=== PATIENT | female | born 1955 | race Caucasian/White ===

== ENCOUNTER → 2016-09-17 | Outpatient (CLI) | payer OTHER ==
[2015-11-25 16:57] VITALS: BP 132/67
[~2016-09-17] MED LIST: ASPI325T4 PO; MULT-246 PO; SIMV40TA PO
--- NOTE | 2016-09-17 13:13 | KCIC ---
Examination: CT chest without contrast. HISTORY History of followup lung nodules, abdominal CT COMPARISON 09/16/[address] images of the chest were performed without contrast. Coronal sagittal reformats were performed. Exposure: One or more of the following dose reduction technique were utilized for this examination: 1. Automated exposure control. 2.Adjustment of MA and /or KV according to patient size. 3. Use of iterative reconstruction technique. FINDINGS The examination is limited by lack of IV contrast. The visualized thyroid gland grossly appears unremarkable. The central airways are patent. The ascending aorta measures 2.8 centimeters in transverse dimension. No evidence a pericardial effusion. No radiologically significant mediastinal lymphadenopathy identified. Emphysematous changes identified in the bilateral lungs. The previously visualized ground-glass pulmonary nodule identified in the right lower lobe of lung is not identified on today's examination. No evidence of pleural effusion or pneumothorax. The visualized non contrasted liver, spleen, adrenals grossly appears unremarkable. Small superior endplate Schmorl's node identified at L2 vertebral body, is new compared to prior exam. IMPRESSION 1. The previously visualized vague ground-glass 4 millimeter nodule is not clearly identified on today's examination. 2. Moderate emphysematous changes identified in the bilateral lungs. 3. Small superior endplate Schmorl's node identified at L2 vertebral body, is new compared to prior exam. Electronically signed by: Herbert Cano (Sep 17, 2016 13:12:49)
== END | disposition home or self-care (01) ==
LOC: KCIC CT 11:12
PROVIDERS: ATTEND Family Medicine
DX: R93.8 Abnormal findings on diagnostic imaging of other specified body structures (principal); F17.210 Nicotine dependence, cigarettes, uncomplicated
CPT/HCPCS: 71250

== ENCOUNTER → 2017-11-30 | Outpatient (CLI) | payer OTHER ==
[~2017-11-30] MED LIST changes: -ASPI325T4 PO; -MULT-246 PO; +REGADENOSON 0.4 MG/5 ML DISP.SYRIN. IV; -SIMV40TA PO
[2017-11-30] MEDS: REGADENOSON 0.4 MG/5 ML DISP.SYRIN. IV (11:16)
== END | disposition home or self-care (01) ==
LOC: NM 08:47
DX: I73.9 Peripheral vascular disease, unspecified (principal); J44.9 Chronic obstructive pulmonary disease, unspecified; I10 Essential (primary) hypertension; E78.5 Hyperlipidemia, unspecified; I36.1 Nonrheumatic tricuspid (valve) insufficiency; Z87.891 Personal history of nicotine dependence
CPT/HCPCS: 78452; 93017; 93306; 93925; 96374; 96375; 96376; A9500; J2785

== ENCOUNTER → 2018-02-09 | Outpatient (CLI) | payer OTHER | END | disposition home or self-care (01) | LOC: KCIC 14:21 | DX: M25.531 Pain in right wrist (principal) | CPT/HCPCS: 73110 ==

== ENCOUNTER → 2018-06-19 | Outpatient (CLI) | payer OTHER ==
[2018-06-19] VITALS (10 sets, daily range): BP systolic 102–138; BP diastolic 50–68
[~2018-06-19] VITALS: Ht 171.4 cm; Wt 45.8 kg
[~2018-06-19] MED LIST changes: +ALPR0.5T6 PO; +ASPI-630 PO; +ASPI325T8 PO; +CONTRAST GIVEN. MC PRN; +HEPARIN for IV BOLUS 10,000 UNIT/10 ML VIAL. IART ONE; +HEPARIN for IV BOLUS 10,000 UNIT/10 ML VIAL. ONE; +IODIXANOL 320 MG/ML 100 ML VIAL. IART ONE; +IODIXANOL 320 MG/ML 100 ML VIAL. ONE; +IV 1/2 NORMAL SALINE 1,000 ML IV SCH; +IV NORMAL SALINE 1000ML BAG 1,000 ML IV SCH; +LIDOCAINE 1% Multi-Dose 50 ML VIAL. ONE; +LIDOCAINE 1% PF 2 ML VIAL. INJ ONE; +LIDOCAINE 1% PF 2 ML VIAL. ONE; +LIPA1CAP6 PO; +MELA3TAB2 PO; +MIDAZOLAM HCL/PF 2 MG/2 ML VIAL. IV ONE; +MIDAZOLAM HCL/PF 2 MG/2 ML VIAL. ONE; +MULT-246 PO; +NITROGLYCERIN 200 MCG/2 ML SYRINGE FOR CATH/VASC LAB. IART ONE; +NITROGLYCERIN 200 MCG/2 ML SYRINGE FOR CATH/VASC LAB. ONE; +NITROGLYCERIN SUBLINGUAL 0.4 MG BOTTLE OF 25. SL PRN; +ONDANSETRON PF 4 MG/2 ML VIAL. ONE; +PROAIR HFA8.5 GM INH; -REGADENOSON 0.4 MG/5 ML DISP.SYRIN. IV; +SERT100T PO; +SIMV40TA PO; +TIOT18CA IH; +VERAPAMIL 5 MG/2 ML VIAL. IART ONE; +VERAPAMIL 5 MG/2 ML VIAL. ONE; +VORA2.082 PO; +fentaNYL PF VIAL 100 MCG/2 ML VIAL IV ONE; +fentaNYL PF VIAL 100 MCG/2 ML VIAL ONE
[2018-06-19 07:25] LABS: CALCIUM 9.3 mg/dL (8.5-10.1); CREATININE 0.9 mg/dL (0.6-1.0); GFR 63.9; HEMATOCRIT 39.6 % (36.0-47.0); POTASSIUM 3.9 mmol/L (3.5-5.1); RED BLOOD COUNT 4.12 x10^6/uL (3.50-5.40); RED CELL DISTRIBUTION WIDTH 14.9 % (11.5-14.5); WHITE BLOOD COUNT 8.4 x10^3/uL (4.0-11.0)
[2018-06-19 07:40] LABS: PROTHROMBIN TIME PATIENT 12.1 SEC (11.7-14.0)
--- NOTE | 2018-06-19 10:18 | PDOC ---
MODERATE SEDATION ASSESSMENT RISKS/ALTERNATIVES Risks/Alternatives Risks and alternatives of this type of sedation and procedure discussed with: RISK/ALTERNATIVES: Patient H & P ON CHART H & P H & P on chart and reviewed for co-morbid conditions and appropriate labs. H&P ON CHART: Yes STATUS PREG STATUS ASSESSED: N/A MEDS/ALLERGIES REVIEWED Meds/Allergies Reviewed Medications and Allergies including time and route of recently administered narcotics and sedatives. MEDS/ALLERGIES REVIEWED: Yes ASA RATING ASA RATING: II AIRWAY ASSESSMENT Airway Assessment Airway patency, oral function limitations, presence of caps, crowns, dentures, partials, and ability to extend neck assessed. AIRWAY ASSESSMENT: Yes MALLAMPATI SCORE MALLAMPATI SCORE: II PRE-SEDATION ASSESSMENT PRE-SEDATION ASSESSMENT: Yes TAVO PADGETT MD Jun 19, 2018 10:18
--- NOTE | 2018-06-19 11:06 | CARD ---
MR#: [id number] Date of Study: 06/19/2018 Ordering Physician: TAVO LOJA Referring Physician: TAVO LOJA Tech: RT Sara (R) APPROVED REPORT Technologist: RT Sara (R) Nurse: Rosalia Ponce R.N. Procedure(s) performed: Left heart catheterization, selective coronary angiography and left ventricul ography via right transradial approach INDICATION The indication(s) include : Refractory dyspnea on exertion concerning for unstable angina. PROCEDURE NARRATIVE After explaining the risks, benefits and alternative options, informed consent was obtained from quita ent. Patient was brought to the cardiac Building Mover and right wrist was prepped and draped in the usual fashion after confirming a positive modified Hilario's test. Arterial access was obtained in the righ t radial artery and a 6 Lithuanian sheath was inserted. 6 Lithuanian Carl catheter was used to perform alexander ective angiography of the left and right coronary arteries. 6 Lithuanian pigtail catheter was used to pe rform left ventriculography. Subsequently, the same catheter was used to perform aortogram with runof f, reported separately. Patient tolerated the procedure well. Hemostasis was achieved using TR band. There were no immediate complications. The following findings were noted. FINDINGS 1. Hemodynamics: Left ventricular end-diastolic pressure of 16 mmHg. No pullback gradient across th e aortic valve. 2. Left ventriculography: Normal left ventricle systolic function with ejection fraction estimated at 60%. No significant mitral regurgitation seen. 3. Coronary angiography: a. The left main coronary artery arose from the left sinus of Valsalva, gave rise to the left anteri or descending and left circumflex arteries and did not show any significant stenosis. b. The left anterior descending artery did not show any significant stenosis. c. The left circumflex artery did not show any significant stenosis. d. The right coronary artery was a large and dominant vessel arising from the right sinus of Valsalv a that did not show any significant stenosis. Conclusion 1. No significant coronary disease 2. Normal left ventricle systolic function with ejection fraction estimated at 60%. Recommendations Cardiac Risk Reduction Program Signed by : Tavo Loja, Electronically Approved : 06/19/2018 11:05:01
--- NOTE | 2018-06-19 11:14 | CARD ---
MR#: [id number] Date of Study: 06/19/2018 Ordering Physician: TAVO LOJA, Referring Physician: TAVO LOJA Tech: RT Sara (R) APPROVED REPORT Patient StatusOUT-PATIENT Vamper: RT Sara (R) Procedure(s) performed: Aortogram with bilateral lower extremity runoff INDICATION FOR PROCEDURE The indication(s) include : Peripheral artery disease with claudication. PROCEDURE NARRATIVE After explaining the risks, benefits and alternative options, informed consent was obtained from quita ent. Patient was brought to the cardiac Big Data Lead and her right wrist was prepped and draped in the us ual fashion after confirming a positive modified Hilario's test. Arterial access was obtained in the merged with [facility] radial artery and a 6 [place] sheath was inserted. Selective coronary angiography and left ventric ulography were performed, reported separately. A 6 [place] pigtail catheter was then placed in the dis gale descending aorta and aortogram with bilateral lower extremity runoff was performed. Since patient was found to have angiographically suspicious lesion in the left common iliac artery stent, a 4 Fren ch Navicross catheter was used to perform pressure gradient across this lesion. Patient tolerated the procedure well. Hemostasis was achieved using TR band. There were no immediate complications. The fo llowing findings were noted. FINDINGS 1. No significant stenosis involving the distal descending aorta 2. Kissing stents seen in bilateral common iliac arteries. The left common iliac artery stent showed 30% in-stent restenosis in the proximal segment with pressure gradient of 9 mmHg across the lesion. The right common iliac artery stent did not show any significant stenosis. 3. No significant stenosis involving bilateral external iliac arteries. 4. No significant stenosis involving bilateral common femoral arteries. 5. No significant stenosis involving bilateral superficial and deep femoral/profunda arteries. 6. No significant stenosis involving bilateral popliteal arteries. 7. There is three-vessel runoff below the knee bilaterally. Conclusion 30% in-stent restenosis involving the left common iliac artery stent without any significant pullback gradient across the lesion. The right common iliac artery stent was widely patent. No significant pe ripheral artery stenosis noted. Recommendations Vascular risk factor modification including smoking cessation and regular exercise regimen Signed by : Tavo Loja, Electronically Approved : 06/19/2018 11:13:40
== END | disposition home or self-care (01) ==
LOC: CCL 06:28
PROVIDERS: ATTEND Internal Medicine Cardiovascular Disease
DX: I70.212 Atherosclerosis of native arteries of extremities with intermittent claudication, left leg (principal); I20.0 Unstable angina; Z79.899 Other long term (current) drug therapy; E78.5 Hyperlipidemia, unspecified; Z90.49 Acquired absence of other specified parts of digestive tract; Z98.890 Other specified postprocedural states; Z82.49 Family history of ischemic heart disease and other diseases of the circulatory system; F17.200 Nicotine dependence, unspecified, uncomplicated; Z88.8 Allergy status to other drugs, medicaments and biological substances
CPT/HCPCS: 36415; 75716; 80048; 85027; 85610; 93458; 99152; 99153; C1769; C1892; J1644; J2250; J3010; J3490; J7030; Q9967; 75630

== ENCOUNTER 2018-11-20 10:21 | Emergency (ER) | payer OTHER ==
[~2018-11-20] VITALS: Ht 170.2 cm; Wt 45.8 kg
[~2018-11-20 10:21] MED LIST changes: +ALBU2.5V8 INH; -CONTRAST GIVEN. MC PRN; -HEPARIN for IV BOLUS 10,000 UNIT/10 ML VIAL. IART ONE; -HEPARIN for IV BOLUS 10,000 UNIT/10 ML VIAL. ONE; -IODIXANOL 320 MG/ML 100 ML VIAL. IART ONE; -IODIXANOL 320 MG/ML 100 ML VIAL. ONE; -IV 1/2 NORMAL SALINE 1,000 ML IV SCH; -IV NORMAL SALINE 1000ML BAG 1,000 ML IV SCH; -LIDOCAINE 1% Multi-Dose 50 ML VIAL. ONE; -LIDOCAINE 1% PF 2 ML VIAL. INJ ONE; -LIDOCAINE 1% PF 2 ML VIAL. ONE; -MIDAZOLAM HCL/PF 2 MG/2 ML VIAL. IV ONE; -MIDAZOLAM HCL/PF 2 MG/2 ML VIAL. ONE; -NITROGLYCERIN 200 MCG/2 ML SYRINGE FOR CATH/VASC LAB. IART ONE; -NITROGLYCERIN 200 MCG/2 ML SYRINGE FOR CATH/VASC LAB. ONE; -NITROGLYCERIN SUBLINGUAL 0.4 MG BOTTLE OF 25. SL PRN; -ONDANSETRON PF 4 MG/2 ML VIAL. ONE; -PROAIR HFA8.5 GM INH; -VERAPAMIL 5 MG/2 ML VIAL. IART ONE; -VERAPAMIL 5 MG/2 ML VIAL. ONE; -fentaNYL PF VIAL 100 MCG/2 ML VIAL IV ONE; -fentaNYL PF VIAL 100 MCG/2 ML VIAL ONE
[2018-11-20] MEDS ORDERED: IV NORMAL SALINE 1000ML BAG 1,000 ML IV SCH (10:54)
[2018-11-20] MEDS ORDERED: diphenhydrAMINE 50 MG/ML VIAL IV ONE (11:00)
[2018-11-20] MEDS ORDERED: IPRATRPIUM/ALBUTEROL 0.5/2.5MG 3 ML NEBU. NEB ONE (11:00)
[2018-11-20] MEDS ORDERED: methylPREDNISolone SOD SUCC PF 125 MG/2 ML VIAL. IV ONE (11:00)
[2018-11-20] MEDS ORDERED: FAMOTIDINE 20 MG/2 ML VIAL IVP ONE (11:00)
--- NOTE | 2018-11-20 11:08 | PHYS DOC ---
Past Medical History Past Medical History: COPD, Heart Disease Additional Past Medical Histor: PANCREATIC PROBLEM ,PNEUMOTHOAX Past Surgical History: Appendectomy Additional Past Surgical Histo: BILATERAL LEG STENTS R/T PVD. Alcohol Use: None Drug Use: None Adult General Chief Complaint Chief Complaint: FACE PROBLEM [facility] HPI Patient is a 63 year old 63 who presents with complaining of rash and facial swelling. Patient complaining of sudden onset of generalized pruritic hives since last night and lips and facial edema with shortness of breath since this morning. Patient denies chest pain, dysphagia, history of allergic reaction, starting new medication or food or detergent. Patient has history of COPD without home oxygen and currently is a smoker. Review of Systems Review of Systems Constitutional: Denies fever or chills [] Eyes: Denies change in visual acuity, redness, or eye pain [] HENT: Denies nasal congestion or sore throat [] Respiratory: Denies cough, reports shortness of breath Cardiovascular: No additional information not addressed in HPI [] GI: Denies abdominal pain, nausea, vomiting, bloody stools or diarrhea [] : Denies dysuria or hematuria [] Musculoskeletal: Denies back pain or joint pain [] Integument: Reports rash Neurologic: Denies headache, focal weakness or sensory changes [] Endocrine: Denies polyuria or polydipsia [] All other systems were reviewed and found to be within normal limits, except as documented in this note. Current Medications Current Medications Current Medications Medications (Trade) Dose Ordered Sig/Elizabeth Start Time Stop Time Status Last Admin Dose Admin Albuterol/ Ipratropium (Duoneb) 3 ml 1X ONCE 11/20/18 11:00 11/20/18 11:01 DC 11/20/18 11:19 3 ML Diphenhydramine HCl (Benadryl) 50 mg 1X ONCE 11/20/18 11:00 11/20/18 11:01 DC 11/20/18 11:56 50 MG Famotidine (Pepcid Vial) 20 mg 1X ONCE 11/20/18 11:00 11/20/18 11:01 DC 11/20/18 11:55 20 MG Methylprednisolone Sodium Succinate (SOLU-Medrol 125MG VIAL) 125 mg 1X ONCE 11/20/18 11:00 11/20/18 11:01 DC 11/20/18 11:56 125 MG Sodium Chloride 1,000 ml @ 1,000 mls/hr Q1H 11/20/18 10:54 11/20/18 11:53 DC 11/20/18 11:55 1,000 MLS/HR Allergies Allergies Allergies Coded Allergies Type Severity Reaction Last Updated Verified metronidazole Allergy Unknown 06/21/14 Yes Physical Exam Physical Exam Constitutional: Well nourished, moderate distress, non-toxic appearance. [] HENT: Normocephalic, atraumatic, upper and lower lips moderate edema without vinita p[place] or uvular edema, bilateral external ears normal, oropharynx moist, no oral exudates, nose normal. [] Eyes: PERRLA, EOMI, conjunctiva normal, no discharge. [] Neck: Normal range of motion, no tenderness, supple, no stridor. [] Cardiovascular:Heart rate regular rhythm, no murmur [] Lungs & Thorax: Bilateral breath sounds clear to auscultation, no respiratory distress or wheezing [] Abdomen: Bowel sounds normal, soft, no tenderness, no masses, no pulsatile masses. [] Skin: Warm, dry, generalized patchy rash on neck, chest, back, gluteal and genital area, upper and lower extremities Neurologic: Alert and oriented X 3, normal motor function, normal sensory function, no focal deficits noted. [] Psychologic: Affect anxious, judgement normal, mood normal. [] Current Patient Data Vital Signs Vital Signs Date Time Temp Pulse Resp B/P (MAP) Pulse Ox O2 Delivery O2 Flow Rate FiO2 11/20/18 13:15 90 16 100/52 (68) 100 Room Air 11/20/18 11:15 99.0 99.0 Lab Values Laboratory Tests Test 11/20/18 11:45 White Blood Count 17.2 x10^3/uL (4.0-11.0) H Red Blood Count 4.20 x10^6/uL (3.50-5.40) Hemoglobin 14.3 g/dL (12.0-15.5) Hematocrit 42.4 % (36.0-47.0) Mean Corpuscular Volume 101 fL (79-100) H Mean Corpuscular Hemoglobin 34 pg (25-35) Mean Corpuscular Hemoglobin Concent 34 g/dL (31-37) Red Cell Distribution Width 16.5 % (11.5-14.5) H Platelet Count 226 x10^3/uL (140-400) Neutrophils (%) (Auto) 94 % (31-73) H Lymphocytes (%) (Auto) 4 % (24-48) L Monocytes (%) (Auto) 2 % (0-9) Eosinophils (%) (Auto) 0 % (0-3) Basophils (%) (Auto) 1 % (0-3) Neutrophils # (Auto) 16.1 x10^3uL (1.8-7.7) H Lymphocytes # (Auto) 0.7 x10^3/uL (1.0-4.8) L Monocytes # (Auto) 0.3 x10^3/uL (0.0-1.1) Eosinophils # (Auto) 0.0 x10^3/uL (0.0-0.7) Basophils # (Auto) 0.1 x10^3/uL (0.0-0.2) Segmented Neutrophils % 92 % (35-66) H Band Neutrophils % 5 % (0-9) Lymphocytes % 2 % (24-48) L Monocytes % 1 % (0-10) Platelet Estimate Adequate (ADEQUATE) Sodium Level 136 mmol/L (136-145) Potassium Level 3.7 mmol/L (3.5-5.1) Chloride Level 101 mmol/L (98-107) Carbon Dioxide Level 24 mmol/L (21-32) Anion Gap 11 (6-14) Blood Urea Nitrogen 19 mg/dL (7-20) Creatinine 1.0 mg/dL (0.6-1.0) Estimated GFR (Cockcroft-Gault) 56.4 BUN/Creatinine Ratio 19 (6-20) Glucose Level 148 mg/dL (70-99) H Calcium Level 9.1 mg/dL (8.5-10.1) Total Bilirubin 1.2 mg/dL (0.2-1.0) H Aspartate Amino Transferase (AST) 22 U/L (15-37) Alanine Aminotransferase (ALT) 16 U/L (14-59) Alkaline Phosphatase 119 U/L (46-116) H Total Protein 7.3 g/dL (6.4-8.2) Albumin 3.8 g/dL (3.4-5.0) Albumin/Globulin Ratio 1.1 (1.0-1.7) Laboratory Tests 11/20/18 11:45 Laboratory Tests 11/20/18 11:45 EKG EKG [] Radiology/Procedures Radiology/Procedures [] Course & Med Decision Making Course & Med Decision Making Pertinent Labs reviewed. (See chart for details) Evaluation of patient in ER showed 63-year-old female patient generalized rash and facial swelling with normal O2 sat labs showed mild leukocytosis without electrolyte problem. Patient treatment with IV fluid, Benadryl, Pepcid and Solu- Medrol and DuoNeb with improvement of her condition. Plan discharge patient home with diagnosis of allergic reaction. Dragon Disclaimer Dragon Disclaimer This electronic medical record was generated, in whole or in part, using a voice recognition dictation system. Departure Departure Impression: Primary Impression: Allergic reaction Additional Impressions: Tobacco abuse Tobacco abuse counseling Disposition: HOME, SELF-CARE (at 14 oh to) Condition: IMPROVED Referrals: BETHANIE MATHEW MD (PCP) Patient Instructions: Drug Allergy, Ueds-sj-Jjkz, Food Allergy, Smoking Cessation, Tips For Success Additional Instructions: Drink plenty of liquids Follow-up with your primary care physician in 3-5 days Return to ER if not getting better Scripts Famotidine (PEPCID) 20 Mg Tablet 20 MG PO BID for rash, #20 TAB Prov: RANDY SHARPE MD 11/20/18 Methylprednisolone (MEDROL) 4 Mg Tab.ds.pk 1 PKG PO UD for inflammation, #1 PKG Prov: RANDY SHARPE MD 11/20/18 Hydroxyzine Hcl (HYDROXYZINE HCL) 25 Mg Tablet 1 TAB PO TID PRN for itching, #30 TAB Prov: RANDY SHARPE MD 11/20/18 Problem Qualifiers Primary Impression: Allergic reaction Encounter type: initial encounter Qualified Codes: T78.40XA - Allergy, unspecified, initial encounter RANDY SHARPE MD Nov 20, 2018 11:07
[2018-11-20 11:54] LABS: BASO # 0.1 x10^3/uL (0.0-0.2); BASO % 1 % (0-3); EOS % 0 % (0-3); HEMATOCRIT 42.4 % (36.0-47.0); HEMOGLOBIN 14.3 g/dL (12.0-15.5); LYMPH # 0.7 x10^3/uL (1.0-4.8); LYMPH % 4 % (24-48); MEAN CORPUSCULAR HEMOGLOBIN 34 pg (25-35); MEAN CORPUSCULAR HGB CONC 34 g/dL (31-37); MEAN CORPUSCULAR VOLUME 101 fL (79-100); MONO # 0.3 x10^3/uL (0.0-1.1); MONO % 2 % (0-9); NEUT # 16.1 x10^3uL (1.8-7.7); NEUT % 94 % (31-73); PLATELET COUNT 226 x10^3/uL (140-400); RED CELL DISTRIBUTION WIDTH 16.5 % (11.5-14.5); WHITE BLOOD COUNT 17.2 x10^3/uL (4.0-11.0)
[2018-11-20 12:16] LABS: CALCIUM 9.1 mg/dL (8.5-10.1)
[2018-11-20 12:17] LABS: GFR 56.4; POTASSIUM 3.7 mmol/L (3.5-5.1)
[2018-11-20 12:22] LABS: ALBUMIN 3.8 g/dL (3.4-5.0); ALBUMIN/GLOBULIN RATIO 1.1 (1.0-1.7); TOTAL BILIRUBIN 1.2 mg/dL (0.2-1.0); TOTAL PROTEIN 7.3 g/dL (6.4-8.2)
[2018-11-20 13:05] LABS: % BANDS 5 % (0-9); % LYMPHS 2 % (24-48); % MONOS 1 % (0-10); % SEGS 92 % (35-66); PLT ESTIMATE ADEQUATE (ADEQUATE)
[2018-11-20] MEDS ORDERED: METH4TAB2 PO (13:08)
[2018-11-20] MEDS ORDERED: FAMO-63 PO (13:08)
[2018-11-20] MEDS ORDERED: HYDR25TA PO (13:08)
[2018-11-20 13:15] VITALS: BP 100/52
== END 2018-11-20 14:10 | disposition home or self-care (01) ==
LOC: ER 10:21
DX: T78.40XA Allergy, unspecified, initial encounter (principal); Z72.0 Tobacco use; Z71.6 Tobacco abuse counseling; J44.9 Chronic obstructive pulmonary disease, unspecified; Z88.8 Allergy status to other drugs, medicaments and biological substances
CPT/HCPCS: 36415; 80053; 85007; 85025; 94640; 96374; 96375; 99284; J1200; J2930; J3490; J7030; J7620

== ENCOUNTER → 2019-01-18 | Outpatient (CLI) | payer OTHER ==
[~2019-01-18] MED LIST changes: +FAMO-63 PO; +HYDR25TA PO; +METH4TAB2 PO
--- NOTE | 2019-01-18 11:01 | CARD ---
MR#: [id number] Date of Study: 01/18/2019 Ordering Physician: TAVO PADGETT, Referring Physician: TAVO PADGETT Tech: Matilde Arita RDCS APPROVED REPORT EXAM: Two-dimensional and M-mode echocardiogram with Doppler and color Doppler. Other Information Quality : Good INDICATION Peripheral Vascular Disease 2D DIMENSIONS RVDd2.0 (2.9-3.5cm)Left Atrium(2D)2.7 (1.6-4.0cm) IVSd0.7 (0.7-1.1cm)Aortic Root(2D)2.3 (2.0-3.7cm) LVDd4.3 (3.9-5.9cm)LVOT Diameter1.9 (1.8-2.4cm) PWd0.6 (0.7-1.1cm)LVDs2.8 (2.5-4.0cm) FS (%) 34.6 %SV52.9 ml LVEF(%)64.0 (>50%) Aortic Valve AoV Peak Andrea.112.4cm/sAoV VTI23.7cm AO Peak GR.5.1mmHgLVOT Peak Andrea.92.4cm/s LVOT VTI 20.77cmAO Mean GR.3mmHg IVANIA (VMAX)2.62gd0RVO (VTI)2.56cm2 Mitral Valve MV E Uvkklhjm87.4cm/sMV DECEL ESLQ507lq MV A Btfgyekf84.1cm/sMV LBO11ae E/A Ratio1.5MVA (PHT)4.95cm2 TDI E/Lateral E'26.4E/Medial E'10.4 Tricuspid Valve TR P. Krmovohu043qp/sRAP QXHLIAJO2rrBj TR Peak Gr.92jkEdMGJU36eiAb Pulmonary Vein S1 Puyoysvq92.8cm/sD2 Hblmytgu34.7cm/s LEFT VENTRICLE The left ventricle is normal size. There is normal left ventricular wall thickness. The left ventricu lar systolic function is normal. The Ejection Fraction is 60-65%. There is normal LV segmental wall m otion. RIGHT VENTRICLE The right ventricle is normal size. The right ventricular systolic function is normal. ATRIA The left atrium size is normal. The right atrium size is normal. The interatrial septum is intact wit h no evidence for an atrial septal defect or patent foramen ovale as noted on 2-D or Doppler imaging. AORTIC VALVE The aortic valve is normal in structure and function. Doppler and Color Flow revealed no significant aortic regurgitation. There is no significant aortic valvular stenosis. MITRAL VALVE The mitral valve is normal in structure and function. There is no evidence of mitral valve prolapse. There is no mitral valve stenosis. Doppler and Color-flow revealed trace mitral regurgitation. TRICUSPID VALVE The tricuspid valve is normal in structure and function. Doppler and Color Flow revealed mild tricusp id regurgitation. The PA pressure was estimated at 25 mmHg. There is no tricuspid valve stenosis. PULMONIC VALVE The pulmonic valve is not well visualized. Doppler and Color Flow revealed mild pulmonic valvular reg urgitation. There is no pulmonic valvular stenosis. GREAT VESSELS The aortic root is normal in size. The ascending aorta is normal in size. The IVC is normal in size a nd collapses >50% with inspiration. PERICARDIAL EFFUSION There is no evidence of significant pericardial effusion. Critical Notification Critical Value: No <Conclusion> The left ventricular systolic function is normal. The Ejection Fraction is 60-65%. There is normal LV segmental wall motion. Trace mitral regurgitation. Mild tricuspid regurgitation. The PA pressure was estimated at 25 mmHg. There is no evidence of significant pericardial effusion. Signed by : Tavo Padgett, Electronically Approved : 01/18/2019 11:00:55
== END | disposition home or self-care (01) ==
LOC: ECHO 09:38
PROVIDERS: ATTEND Internal Medicine Cardiovascular Disease
DX: I08.8 Other rheumatic multiple valve diseases (principal); I73.9 Peripheral vascular disease, unspecified
CPT/HCPCS: 93306

== ENCOUNTER → 2019-07-02 | Outpatient (CLI) | payer MEDICAID ==
[~2019-07-02] MED LIST changes: -MELA3TAB2 PO; +MELA3TAB56 PO
--- NOTE | 2019-07-02 13:05 | KCIC ---
Bilateral digital screening mammograms: Reason for examination: Routine screening. Comparison is made to previous study dated 09/16/2015. Interpretation was made with the benefit of CAD. The skin and nipples show no abnormalities. No abnormal axillary lymph nodes are seen. The breast parenchyma is extremely dense. (Breast density: Category D) There are no dominant masses, suspicious calcifications or architectural distortion. A few benign calcifications are again seen. Impression: No evidence of malignancy. Recommend routine screening. Your patient's mammogram demonstrates that she has dense breast tissue (breast density category C or D), which could hide abnormalities, and if she has other risk factors for breast cancer that have been identified, she might benefit from supplemental screening tests that may be suggested by you as her ordering physician. Dense breast tissue, in and of itself, is a relatively common condition. Therefore, this information is not provided to cause undue concern, but rather to raise your awareness and to promote discussion with your patient regarding the presence of other risk factors, in addition to dense breast tissue. Your patient's mammography results will be sent to her. BI-RADS Category 2: Benign. "Our facility is accredited by the [employer] Mammography Program." This patient's information has been entered into a reminder system for the patient to be notified with the results of her examination and a target date for the next mammogram. Electronically signed by: Sabine Yepez MD (07/02/2019 1:02 PM) [id number]
--- NOTE | 2019-07-02 13:43 | KCIC ---
EXAM: Dual energy x-ray absorptiometry (DEXA). HISTORY: Postmenopausal female presents for osteoporosis screening. COMPARISON: 05/07/2016. TECHNIQUE: Dual energy x-ray absorptiometry of the lumbar spine and left hip was performed. Calculation of bone mineral density based on standard deviations above or below the expected young adult normal value (T-score) was completed. FINDINGS: The average bone mineral density in the 1st through 4th lumbar vertebrae is 0.716 g/cmxcm, corresponding with a T-score of -3.0. There has been a 1.0% increase in density of the lumbar spine compared to the prior study. The average total bone mineral density in the left hip is 0.530 g/cmxcm, corresponding with a T-score of -3.4. There has been a 1.4% increase in density of the left hip compared to the prior study. IMPRESSION: Osteoporosis. Note: Definitions established by the World Health Organization: 1. Normal: T-score is -1.0 or above. 2. Osteopenia: T-score is between -1.0 and -2.5 . 3. Osteoporosis: T-score is -2.5 or below. Note: Definitions established by the World Health Organization: 1. Normal: T-score is -1.0 or above. 2. Osteopenia: T-score is between -1.0 and -2.5 . 3. Osteoporosis: T-score is -2.5 or below. Electronically signed by: Flaca Mosquera MD (07/02/2019 1:40 PM) [facility]
== END | disposition home or self-care (01) ==
LOC: KCIC DEXA 10:49
PROVIDERS: ATTEND Family Medicine
DX: Z12.31 Encounter for screening mammogram for malignant neoplasm of breast (principal); N64.89 Other specified disorders of breast; M81.0 Age-related osteoporosis without current pathological fracture
CPT/HCPCS: 77067; 77080

== ENCOUNTER → 2020-01-09 | Outpatient (CLI) | payer MEDICAID ==
[~2020-01-09] MED LIST changes: +MELA3TAB4 PO; -MELA3TAB56 PO; +REGADENOSON 0.4 MG/5 ML DISP.SYRIN. IV ONE
--- NOTE | 2020-01-09 13:28 | RAD ---
MR#: [id number] Date of Study: 01/09/2020 Ordering Physician: TAVO PADGETT, Referring Physician: SANTIAGO GOMEZ Tech: RT Cedillo (R) (N) APPROVED REPORT Test Type: Pharmacological Stress Nurse/Tech: Teresa Alonso R.N. Test Indications: PVD Cardiac History: COPD, PVD Medications: See Electronic Medical Record Medical History: See Electronic Medical Record Resting ECG: SB Resting Heart Rate: 57 bpm Resting Blood Pressure: 120/64mmHg Pretest Chest Pain: No chest pain Nurse/Tech Notes S1S2, lungs CTA Consent: The procedure was explained to the patient in lay terms. Informed consent was witnessed. Jose Martin eout was entered into [employer]. History and Stress Test performed by RT Amarjit Daniels) (N) Pharm. Details Pharmacologic stress testing was performed using 0.4mg per 5ml of regadenoson given intravenously ove r 7-10 seconds. Stress Symptoms SOB, stomach pain, h/a. POST EXERCISE Reason for Termination: Infusion complete Max HR: 103 bpm Max Blood Pressure: 122/56mmHg Blood Pressure response to exercise: Normal blood pressure response during stress. Heart Rate response to exercise: wnl Chest Pain: No. Arrhythmia: No. INTERPRETATION Stress EKG Conclusion: The resting EKG shows a sinus rhythm and mild nonspecific ST segment changes. The stress EKG shows slight further ST segment changes that are not diagnostic of ischemia. No EKG evidence of stress-induced ischemia. Imaging Protocol IMAGE PROTOCOL: Rest Tc-99m/stress Tc-99m 1 day Rest: Stress: Viability: Radiopharm.Tc99m LgktbihhnSr30k Sestamibi Hkrb80kQt 32.4mCi Duration 15min. 10min. Img Date 01/09/2020 01/09/2020 Inj-Img Nlmy51lgi. 60min. Rest Admin Site:IV - Right AntecubitalAdministrator:RT Diomedes DanielsR)(N) Stress Admin Site: IV - Right AntecubitalAdministrator: RADHA Morocho STRESS DATA End Diast. Vol.51.0mlAv. Heart Rate77.0bpm End Syst. Vol.7.0mlCO Index BSA0.0L/min Myocardial Geji955.0gEject. Gxkxmnfl11.0% Stress Rates Pk. Fill Rate5.04EDV/secLVtime Pk. Fill 105.60msec Pk. Empty Rate5.92ESV/secLVtime Pk. Hojdf123.99msec 1/3 Pk. Fill3.17EDV/sec Stress Scores Regional WT0.00Summed WT0.00 Regional WM0.00Summed WM0.00 LV Perfusion The stress scans showed no significant defects. The rest scans showed no significant defects. Nuclear imaging shows no reversible ischemia or infarct. Wall Motion Left ventricular systolic function is normal with no regional wall motion abnormalities and an ejecti on fraction of greater than 70%. LV Perf. Quant 17 Seg. SSS1.00 17 Seg. SRS1.00 17 Seg. SDS1.00 Stress Defect Extent (% LAD)0.00Rest Defect Extent (% LAD)2.50Rev. Defect Extent (% LAD)0.00 Stress Defect Extent (% LCX) 11.30Rest Defect Extent (% LCX)0.00Rev. Defect Extent (% LCX)8.80 Stress Defect Extent (% RCA)0.00Rest Defect Extent (% RCA)0.00Rev. Defect Extent (% RCA)0.00 Stress Defect Extent (% ARIS)2.00Rest Defect Extent (% ARIS)0.90Rev. Defect Extent (% ARIS)1.50 Conclusion 1. No EKG evidence of stress-induced ischemia. 2. Nuclear imaging shows no reversible ischemia or infarct. 3. Normal left ventricular systolic function with no regional wall motion abnormalities and an ejecti on fraction of greater than 70% 4. Low risk Lexiscan nuclear stress test. Signed by : Mendez Solomon MD Electronically Approved : 01/09/2020 13:28:09
== END | disposition home or self-care (01) ==
LOC: NM 10:00
PROVIDERS: ATTEND Internal Medicine Cardiovascular Disease
DX: I73.9 Peripheral vascular disease, unspecified (principal)
CPT/HCPCS: 78452; 93017; A9500; J2785

== ENCOUNTER → 2020-02-20 | Outpatient (CLI) | payer MEDICAID ==
[~2020-02-20] MED LIST changes: -REGADENOSON 0.4 MG/5 ML DISP.SYRIN. IV ONE
--- NOTE | 2020-02-20 18:24 | CARD ---
MR#: [id number] Date of Study: 02/20/2020 Ordering Physician: TAVO PADGETT, Referring Physician: TAVO PADGETT Tech: Matilde Arita RDCS APPROVED REPORT EXAM: Two-dimensional and M-mode echocardiogram with Doppler and color Doppler. Other Information Quality : Fair INDICATION Peripheral Vascular Disease 2D DIMENSIONS RVDd2.7 (2.9-3.5cm)Left Atrium(2D)2.5 (1.6-4.0cm) IVSd0.8 (0.7-1.1cm)Aortic Root(2D)2.0 (2.0-3.7cm) LVDd3.5 (3.9-5.9cm)LVOT Diameter1.5 (1.8-2.4cm) PWd0.8 (0.7-1.1cm)LVDs2.7 (2.5-4.0cm) FS (%) 25.0 % Aortic Valve AoV Peak Andrea.108.0cm/sAoV VTI20.0cm AO Peak GR.5.0mmHgAO Mean GR.3mmHg IVANIA (VTI)1.60cm2 Tricuspid Valve TR P. Ggowtzrz676pw/sRAP MGSJMQMR5rdOd TR Peak Gr.98lsKrCUQK20cgIt LEFT VENTRICLE The left ventricle is normal size. There is normal left ventricular wall thickness. Left ventricle sy stolic function is low normal. The Ejection Fraction is 50-55%. Septal motion consistent with conduct ion abnormality. RIGHT VENTRICLE The right ventricle is normal size. The right ventricular systolic function is normal. ATRIA The left atrium size is normal. The right atrium size is normal. The interatrial septum is intact wit h no evidence for an atrial septal defect or patent foramen ovale as noted on 2-D or Doppler imaging. AORTIC VALVE The aortic valve is calcified but opens well. Doppler and Color Flow revealed no significant aortic r egurgitation. There is no significant aortic valvular stenosis. MITRAL VALVE The mitral valve is calcified but opens well. The mitral valve leaflets are thickened and redundant w ithout clear evidence of mitral valve prolapse. There is no mitral valve stenosis. Doppler and Color Flow revealed no mitral valve regurgitation noted. TRICUSPID VALVE The tricuspid valve is normal in structure and function. Doppler and Color Flow revealed trace tricus pid regurgitation. The PA pressure was estimated at 26 mmHg. There is no tricuspid valve stenosis. PULMONIC VALVE The pulmonic valve is not well visualized. Doppler and Color Flow revealed no pulmonic valvular regur gitation. There is no pulmonic valvular stenosis. GREAT VESSELS The aortic root is normal in size. The ascending aorta is not well seen. The IVC is normal in size an d collapses >50% with inspiration. PERICARDIAL EFFUSION There is no evidence of significant pericardial effusion. Critical Notification Critical Value: No <Conclusion> The left ventricle is normal size. Left ventricle systolic function is low normal. The Ejection Fraction is 50-55%. Septal motion consistent with conduction abnormality. Doppler and Color Flow revealed no significant aortic regurgitation. There is no significant aortic valvular stenosis. Doppler and Color Flow revealed no mitral valve regurgitation noted. Doppler and Color Flow revealed trace tricuspid regurgitation. The PA pressure was estimated at 26 mmHg. Signed by : Mendez Solomon MD Electronically Approved : 02/20/2020 18:24:33
== END | disposition home or self-care (01) ==
LOC: ECHO 11:00
PROVIDERS: ATTEND Internal Medicine Cardiovascular Disease
DX: I08.0 Rheumatic disorders of both mitral and aortic valves (principal); I73.9 Peripheral vascular disease, unspecified
CPT/HCPCS: 93306

== ENCOUNTER 2020-06-18 13:10 | Emergency (ER) | payer MEDICAID ==
[~2020-06-18] VITALS: Ht 171.4 cm; Wt 53.6 kg
[2020-06-18] MEDS ORDERED: MORPHINE SULFATE 4 MG/ML VIAL. IV ONE (13:45)
[2020-06-18] MEDS ORDERED: ONDANSETRON PF 4 MG/2 ML VIAL. IV ONE (13:45)
[2020-06-18] MEDS ORDERED: DIPH,PERTUSS(ACELL),TET VAC/PF 0.5 ML SYRINGE. VAX IM ONE (14:00)
--- NOTE | 2020-06-18 14:12 | ED.ADGEN ---
Past Medical History Past Medical History: COPD, Heart Disease Additional Past Medical Histor: PANCREATIC PROBLEM ,PNEUMOTHORAX; PAD Past Surgical History: Appendectomy Additional Past Surgical Histo: BILATERAL LEG STENTS R/T PVD. Smoking Status: Current Every Day Smoker Alcohol Use: None Drug Use: None General Adult EDM: Chief Complaint: MECHANICAL FALL HPI: HPI: Patient is a 64 year old female, accompanied by her , who presents to the emergency room with complaints of left-sided facial pain, right elbow and forearm pain, and left knee pain after falling down several steps today. Patient reports that she realized she was going to fall and the next thing she knew she woke up on the floor at the end of the steps. She denies any nausea, vomiting, neck pain, back pain, abdominal pain, confusion, vision changes, numbness, tingling, or weakness. She denies any chest pain, palpitations, or shortness of breath. Patient reports she has pain to her left orbit and left cheek, and a laceration to her left eyebrow. She denies any bleeding from her nose, she states that she could taste blood mouth but reports that she does not have any teeth. Patient reported that she called her who came home and then brought her to the ER. Patient swas able to get back up the stairs without any assistance. She currently rates her pain a 9 out of 10 on the pain scale, pain is worse with palpation and movement, she denies any alleviating factors. Review of Systems: Review of Systems: Complete ROS is negative unless otherwise noted in HPI. Current Medications: Current Medications Medications (Trade) Dose Ordered Sig/Elizabeth Start Time Stop Time Status Last Admin Dose Admin Diphtheria/ Tetanus/Acell Pertussis (ADACEL TDap SYRINGE) 0.5 ml ONCE ONCE 06/18/20 14:00 06/18/20 14:01 DC 06/18/20 14:24 0.5 ML Morphine Sulfate (Morphine Sulfate) 4 mg 1X ONCE 06/18/20 13:45 06/18/20 13:46 DC 06/18/20 14:22 4 MG Ondansetron HCl (Zofran) 4 mg 1X ONCE 06/18/20 13:45 06/18/20 13:46 DC 06/18/20 14:21 4 MG Allergies: Allergies: Allergies Coded Allergies Type Severity Reaction Last Updated Verified metronidazole Allergy Intermediate 6/6/20 Yes Physical Exam: PE: See Above Constitutional: Well developed, well nourished, no acute distress, non-toxic appearance. [] HENT: Normocephalic, bilateral external ears normal, nose normal; left maxillofacial tenderness to palpation no crepitus or subcutaneous emphysema present Eyes: PERRLA, EOMI, conjunctiva normal, no discharge; left orbit tender to palpation without crepitus Neck: no stridor, in c-collar. [] Cardiovascular:Heart rate regular rhythm Lungs & Thorax: Respirations even and unlabored, no retractions, no respiratory distress Abdomen: soft, no tenderness Skin: Warm, dry, no erythema, no rash; 1 cm superficial laceration to left eyebrow, no active bleeding, no visible foreign body [] Extremities: Right elbow lateral tenderness to palpation without crepitus or obvious deformity, no edema, no cyanosis, ROM limited due to pain; right forearm proximal tenderness to palpation without crepitus or obvious deformity, no edema; left anterior knee: Tenderness to palpation without crepitus or obvious deformity, no edema, range of motion intact, no cyanosis Neurologic: Alert and oriented X 3, normal sensory, normal motor, no focal deficits noted. [] Psychologic: Affect normal, judgement normal, mood normal. [] Current Patient Data: Vital Signs: Vital Signs Date Time Temp Pulse Resp B/P (MAP) Pulse Ox O2 Delivery O2 Flow Rate FiO2 06/18/20 13:13 98.8 73 16 146/70 (95) 97 Room Air 98.8 EKG: EKG: [] Heart Score: Risk Factors: Risk Factors: DM, Current or recent (<one month) smoker, HTN, HLP, family history of CAD, obesity. Risk Scores: Score 0 - 3: 2.5% MACE over next 6 weeks - Discharge Home Score 4 - 6: 20.3% MACE over next 6 weeks - Admit for Clinical Observation Score 7 - 10: 72.7% MACE over next 6 weeks - Early Invasive Strategies Radiology/Procedures: Radiology/Procedures: PROCEDURE: CT MAXILLOFACIAL WO CONTRAST Examination: CT HEAD AND CERVICAL SPINE WO, CT MAXILLOFACIAL WO CONTRAST History: down stairs, + LOC, left facial pain /; pain Comparison/Correlation: None Findings: Axial images of the head, exophytic structures, and cervical spine were obtained without contrast. Sagittal and coronal reformatted images of the maxillofacial structures and cervical spine were provided. Ventricles are normal size. No intracranial hemorrhage, midline shift, or mass effect. Minimal fluid involving the left maxillary sinus is present. Opacification of the right frontal sinus noted. Patchy opacification of ethmoid air cells noted. Fracture involving the left maxillary sinus lateral wall is present. Associated gas within soft tissues noted at this site. Left maxillary sinus mucous retention cyst is present. Partial opacification of left axillary sinus ostium. Small bilateral tanner bullosa noted. There is no orbital fracture identified. Right temporomandibular joint degenerative remodeling is present. Atlantoaxial joint degenerative remodeling is present. Moderate C5-6 disc space narrowing posteriorly is present. Bony encroachment on the neural foramina bilaterally at this level evident greater on the right. Vertebral body heights are unremarkable. No displaced fracture or bone destruction. Significant emphysematous involvement of the lung apices noted. Impression: Left lateral maxillary sinus wall fracture. No intracranial hemorrhage. Degenerative changes at the C5-6 level. Emphysema. PROCEDURE: ELBOW RIGHT 3V Examination: ELBOW RIGHT 3V History: Reason: right elbow and prox forearm pain after fall down steps / Spl. Instructions: / History: Comparison/Correlation: None Findings: 3 images right elbow were obtained. Joint spaces are unremarkable. Radial head fracture in the lateral view is present without displacement. Fat pad displacement compatible with underlying infiltrate or effusion is present. No degenerative changes. Impression: Radial head acute fracture with joint effusion. PROCEDURE: KNEE LEFT 3V Examination: KNEE LEFT 3V History: Reason: left knee pain after fall down steps / Comparison/Correlation: None Findings: Total of 3 images of the left knee were obtained . Portable technique utilized. Joint spaces are normal. No acute fracture or bone destruction. Soft tissues are unremarkable. No joint effusion. Impression: Normal left knee x-ray exam. [] Course & Med Decision Making: Course & Med Decision Making Pertinent Labs and Imaging studies reviewed. (See chart for details) [] Dragon Disclaimer: Faisal Disclaimer: This electronic medical record was generated, in whole or in part, using a voice recognition dictation system. Departure Departure Impression: Primary Impression: Maxillary sinus fracture Additional Impressions: Right radial head fracture Left anterior knee pain Fall down stairs Head injury with loss of consciousness Eyebrow laceration Need for Tdap vaccination Disposition: 01 DC HOME SELF CARE/HOMELESS Condition: STABLE Referrals: TRUSTY,CAESAR B MD (PCP) NIC HARRIS MD,MARCELLA Patel MD Patient Instructions: Facial Fracture, Facial Laceration, Vbqu-cu-Hbvy, Head Injury, Adult, Udbm-nw-Orvt, Knee Pain, Sscm-ev-Qmmz, Radial Head Fracture, Pgos-iy-Ouiu, VIS, Tetanus, Diphtheria (Td); Tetanus, Diphtheria, Pertussis (Tdap) - [facility] [place] Additional Instructions: Fill the prescriptions and take as directed. Apply ice to sore areas every hour today and tomorrow then as needed for pain/swelling. Afrin nasal spray for no more than 3 days as needed for nasal congestion. Do not blow your nose until you have been cleared by ear nose and throat, call Dr. Harris for follow-up on the maxillary sinus fracture, call Dr. Radford for follow-up on the radial head fracture and knee pain. Wear the splint that was placed until follow up. Follow the head injury precautions provided. Follow up with your primary care doctor in 1-2 days. Return to the ER if symptoms worsen. Scripts Ondansetron Hcl (ONDANSETRON HCL) 4 Mg Tablet 1 TAB PO PRN Q6HRS PRN for NAUSEA/VOMITING for 5 Days, #20 TAB 0 Refills Prov: BRUNILDA DAVILA [employer] ATTENDANT 06/18/20 Hydrocodone Bit/Acetaminophen (HYDROCODONE-APAP 5-325 ) 1 Tab Tablet 0.5-1 TAB PO PRN Q6HRS PRN for SEVERE PAIN 7-10, #10 TAB 0 Refills Prov: BRUNILDA DAVILA [employer] ATTENDANT 06/18/20 Amoxicillin/Potassium Clav (AUGMENTIN 875-125 TABLET) 1 Each Tablet 1 TAB PO BID for 7 Days, #14 TAB 0 Refills Prov: BRUNILDA DAVILA [employer] ATTENDANT 06/18/20 Splinting Splinting : Location: R arm Hand-Made Type: orthoglass (posterior long arm ) Pre-Proc Neuro Vasc Exam: normal Post-Proc Neuro Vasc Exam: normal, unchanged from pre-exam Problem Qualifiers Primary Impression: Maxillary sinus fracture Encounter type: initial encounter Fracture type: closed Qualified Codes: S02.401A - Maxillary fracture, unspecified side, initial encounter for closed fracture Additional Impressions: Right radial head fracture Encounter type: initial encounter Fracture type: closed Fracture alignment: nondisplaced Qualified Codes: S52.124A - Nondisplaced fracture of head of right radius, initial encounter for closed fracture Fall down stairs Encounter type: initial encounter Qualified Codes: W10.8XXA - Fall (on) (from) other stairs and steps, initial encounter Eyebrow laceration Encounter type: initial encounter Laterality: left Qualified Codes: S01.112A - Laceration without foreign body of left eyelid and periocular area, initial encounter BRUNILDA DAVILA APRN Jun 18, 2020 14:12
--- NOTE | 2020-06-18 14:38 | RAD ---
Examination: CT HEAD AND CERVICAL SPINE WO, CT MAXILLOFACIAL WO CONTRAST History: down stairs, + LOC, left facial pain /; pain Comparison/Correlation: None Findings: Axial images of the head, exophytic structures, and cervical spine were obtained without contrast. Sagittal and coronal reformatted images of the maxillofacial structures and cervical spine were provided. Ventricles are normal size. No intracranial hemorrhage, midline shift, or mass effect. Minimal fluid involving the left maxillary sinus is present. Opacification of the right frontal sinus noted. Patchy opacification of ethmoid air cells noted. Fracture involving the left maxillary sinus lateral wall is present. Associated gas within soft tissues noted at this site. Left maxillary sinus mucous retention cyst is present. Partial opacification of left axillary sinus ostium. Small bilateral tanner bullosa noted. There is no orbital fracture identified. Right temporomandibular joint degenerative remodeling is present. Atlantoaxial joint degenerative remodeling is present. Moderate C5-6 disc space narrowing posteriorly is present. Bony encroachment on the neural foramina bilaterally at this level evident greater on the right. Vertebral body heights are unremarkable. No displaced fracture or bone destruction. Significant emphysematous involvement of the lung apices noted. Impression: Left lateral maxillary sinus wall fracture. No intracranial hemorrhage. Degenerative changes at the C5-6 level. Emphysema. PQRS Compliance Statement: One or more of the following individualized dose reduction techniques were utilized for this examination: 1. Automated exposure control 2. Adjustment of the mA and/or kV according to patient size 3. Use of iterative reconstruction technique Electronically signed by: Murtaza Haynes MD (06/18/2020 2:35 PM) [facility]
--- NOTE | 2020-06-18 14:53 | RAD ---
Examination: ELBOW RIGHT 3V History: Reason: right elbow and prox forearm pain after fall down steps / Spl. Instructions: / History: Comparison/Correlation: None Findings: 3 images right elbow were obtained. Joint spaces are unremarkable. Radial head fracture in the lateral view is present without displacement. Fat pad displacement compatible with underlying infiltrate or effusion is present. No degenerative changes. Impression: Radial head acute fracture with joint effusion. Electronically signed by: Murtaza Haynes MD (06/18/2020 2:50 PM) [facility]
--- NOTE | 2020-06-18 14:54 | RAD ---
Examination: KNEE LEFT 3V History: Reason: left knee pain after fall down steps / Comparison/Correlation: None Findings: Total of 3 images of the left knee were obtained . Portable technique utilized. Joint spaces are normal. No acute fracture or bone destruction. Soft tissues are unremarkable. No joint effusion. Impression: Normal left knee x-ray exam. Electronically signed by: Murtaza Haynes MD (06/18/2020 2:51 PM) [facility]
[2020-06-18] MEDS ORDERED: HYDR-2761 PO (15:44)
[2020-06-18] MEDS ORDERED: AMOX1TAB61 PO (15:44)
[2020-06-18] MEDS ORDERED: ONDA-84 PO (15:44)
[2020-06-18 15:55] VITALS: BP 123/64
== END 2020-06-18 16:05 | disposition home or self-care (01) ==
LOC: ER 13:10
DX: S02.40DA Maxillary fracture, left side, initial encounter for closed fracture (principal); S52.121A Displaced fracture of head of right radius, initial encounter for closed fracture; S01.112A Laceration without foreign body of left eyelid and periocular area, initial encounter; M25.562 Pain in left knee; J44.9 Chronic obstructive pulmonary disease, unspecified; I51.9 Heart disease, unspecified; F17.200 Nicotine dependence, unspecified, uncomplicated; Z88.8 Allergy status to other drugs, medicaments and biological substances; Z90.89 Acquired absence of other organs; Z98.890 Other specified postprocedural states; W10.8XXA Fall (on) (from) other stairs and steps, initial encounter; Y93.89 Activity, other specified; Y92.89 Other specified places as the place of occurrence of the external cause; Y99.8 Other external cause status
CPT/HCPCS: 29105; 70450; 70486; 72125; 73080; 73562; 90471; 90715; 96374; 96375; 99285; J2270; J2405

== ENCOUNTER → 2020-07-30 | Outpatient (CLI) | payer MEDICAID ==
[~2020-07-30] MED LIST changes: +AMOX1TAB61 PO; +HYDR-2761 PO; +ONDA-84 PO
--- NOTE | 2020-07-31 04:08 | KCIC ---
XR ELBOW COMPLETE_RIGHT 3+ VIEWS 07/30/2020 1:25 PM INDICATION: Closed nondisplaced fracture of the radial head COMPARISON: None available. TECHNIQUE: 3 views the right elbow are provided. FINDINGS/ IMPRESSION: No significant elbow joint effusion. Interval osseous healing involving the nondisplaced fracture of the radial head. No dislocation or significant soft tissue abnormality. Electronically signed by: Tamela Malloy MD (07/31/2020 4:06 AM) [facility]
== END ==
LOC: KCIC 12:59
PROVIDERS: ATTEND Family Medicine
DX: S52.124D Nondisplaced fracture of head of right radius, subsequent encounter for closed fracture with routine healing (principal); X58.XXXD Exposure to other specified factors, subsequent encounter
CPT/HCPCS: 73080

== ENCOUNTER → 2021-03-04 | Outpatient (CLI) | payer MEDICAID ==
--- NOTE | 2021-03-04 16:26 | RAD ---
MR#: [id number] Date of Study: 03/04/2021 Ordering Physician: TAVO PADGETT, Referring Physician: TAVO PADGETT, Tech: Amelia Martinez, RADHA, RVT, RTR APPROVED REPORT Patient Location: OUT-PATIENT Indications PAD VELOCITY AND DOPPLER WAVEFORM ANALYSIS RIGHT cm/secWaveformSeverity LEFT cm/secWaveform Severity pCFA 109.0pCFA dCFA dCFA 159.2 Prof Fem Art. 88.9Prof Fem Art. 87.3 Fem Art Prox. 112.8Fem Art Prox. 113.1 Fem Art Mid. 107.0Fem Art Mid. 133.0 Fem Art Dist. 93.0Fem Art Dist. 107.0 Pop Art(Fossa) 56.7Pop Art(AK) 54.1 FLUSH TESTER Prox. 25.6PTA Prox. 51.8 FLUSH TESTER Dist. 56.2PTA Dist. 62.5 Per Art Prox. 69.4Per Art Prox. 74.5 APOLINAR Prox. 45.0ATA Prox. 62.0 DPA 50DPA 61 Findings Grayscale images of the bilateral lower extremities demonstrate mild diffuse atherosclerosis. No foc al high-grade stenosis is identified on grayscale images On the right side based on spectral waveforms and color Doppler no significant above-knee disease. B elow the knee there is three-vessel runoff with likely greater than 50% stenosis involving the flanging operator ior tibial artery. On the left side again no significant above-knee disease is noted. Below the knee there is three-ves alexander runoff with normal velocities without any focal stenosis. Critical Notification Critical Value: No <Conclusion> 1. Moderate right posterior tibial arterial disease but otherwise no significant lower extremity dis ease noted with three-vessel runoff bilaterally Signed by : Rolando Rizzo, Electronically Approved : 03/04/2021 16:26:17
--- NOTE | 2021-03-04 17:01 | CARD ---
MR#: [id number] Date of Study: 03/04/2021 Ordering Physician: TAVO PADGETT, Referring Physician: TAVO PADGETT, Tech: Amelia Yarbrough, [facility] APPROVED REPORT EXAM: Two-dimensional and M-mode echocardiogram with Doppler and color Doppler. Other Information Quality : Average Technically limited study due to body habitus. INDICATION COPD Hyperlipidemia, Peripheral vascular disease RISK FACTORS Hyperlipidemia Smoking 2D DIMENSIONS RVDd2.5 (2.9-3.5cm)Left Atrium(2D)3.0 (1.6-4.0cm) IVSd0.7 (0.7-1.1cm)Aortic Root(2D)2.5 (2.0-3.7cm) LVDd4.6 (3.9-5.9cm)PWd0.7 (0.7-1.1cm) LVDs2.9 (2.5-4.0cm)FS (%) 36.5 % SV63.0 mlLVEF(%)66.4 (>50%) Aortic Valve AoV Peak Andrea.126.7cm/sAoV VTI30.0cm AO Peak GR.6.4mmHgLVOT Peak Andrea.100.2cm/s LVOT VTI 21.92cmAO Mean GR.3mmHg Mitral Valve MV E Nbogqakp725.1cm/sMV DECEL [id number] MV A Nwlsidfj95.2cm/sMV KDR05qx E/A Ratio2.8MVA (PHT)5.41cm2 TDI E/Lateral E'9.1E/Medial E'10.1 Pulmonary Valve PV Peak Mvpvuwsr23.8cm/sPV Peak Grad.3mmHg Tricuspid Valve TR P. Cfltbied356du/sRAP LHHTORTB2wfFo TR Peak Gr.60txMeZLIM53unBb Pulmonary Vein S1 Lbsiqrjz83.4cm/sD2 Hdmmgnhw31.9cm/s PVa zljylibj013bmsd LEFT VENTRICLE The left ventricle is normal size. There is normal left ventricular wall thickness. The left ventricu lar systolic function is normal and the ejection fraction is within normal range. The Ejection Fracti on is 50-55%. There is normal LV segmental wall motion. The left ventricular diastolic function and f illing is normal for age. RIGHT VENTRICLE The right ventricle is normal size. There is normal right ventricular wall thickness. The right ventr icular systolic function is normal. ATRIA The left atrium size is normal. The right atrium size is normal. The interatrial septum is intact wit h no evidence for an atrial septal defect or patent foramen ovale as noted on 2-D or Doppler imaging. AORTIC VALVE The aortic valve is normal in structure and function. Doppler and Color Flow revealed no significant aortic regurgitation. There is no significant aortic valvular stenosis. Calculated aortic valve area is 2.12 cm2 with maximum pressure gradient of 7 mmHg and mean pressure gradient of 3 mmHg. MITRAL VALVE The mitral valve is normal in structure and function. There is no evidence of mitral valve prolapse. There is no mitral valve stenosis. Doppler and Color-flow revealed trace mitral regurgitation. TRICUSPID VALVE The tricuspid valve is normal in structure and function. Doppler and Color Flow revealed trace tricus pid regurgitation with an estimated PAP of 29 mmHg. There is no tricuspid valve stenosis. PULMONIC VALVE The pulmonic valve is not well visualized. Doppler and Color Flow revealed trace pulmonic valvular re gurgitation. There is no pulmonic valvular stenosis. GREAT VESSELS The aortic root is normal in size. The IVC is normal in size and collapses >50% with inspiration. PERICARDIAL EFFUSION There is no evidence of significant pericardial effusion. Critical Notification Critical Value: No <Conclusion> The left ventricular systolic function is normal and the ejection fraction is within normal range. Th e Ejection Fraction is 50-55%. There is normal LV segmental wall motion. Signed by : Rolando Rizzo, Electronically Approved : 03/04/2021 17:00:56
== END ==
LOC: US 14:12
PROVIDERS: ATTEND Internal Medicine Cardiovascular Disease
DX: I70.203 Unspecified atherosclerosis of native arteries of extremities, bilateral legs (principal); E78.5 Hyperlipidemia, unspecified
CPT/HCPCS: 93306; 93925

== ENCOUNTER → 2021-05-04 | Outpatient (CLI) | payer MEDICAID ==
--- NOTE | 2021-05-04 18:01 | KCIC ---
Bilateral digital screening mammograms: Reason for examination: Routine screening. Comparison is made to previous study dated 07/02/2019. Interpretation was made with the benefit of CAD. Findings: Breast density: Category C. The breasts are heterogeneously dense, which may obscure small masses.. There are no suspicious masses, malignant appearing calcifications or architectural distortions. Impression: No evidence of malignancy. Assessment: BI-RADS Category 1: Negative. Recommendation: Routine screening mammograms. This patient's information has been entered into a reminder system for the patient to be notified wit h the results of her examination and a target date for the next mammogram. Electronically signed by: Dee Yee MD (05/04/2021 5:59 PM) [id number]
== END ==
LOC: KCIC MAMMO 12:29
PROVIDERS: ATTEND Family Medicine
DX: Z12.31 Encounter for screening mammogram for malignant neoplasm of breast (principal)
CPT/HCPCS: 77067

== ENCOUNTER → 2021-09-28 | Outpatient (CLI) | payer MEDICAID ==
--- NOTE | 2021-09-28 16:13 | RAD ---
MR#: [id number] Date of Study: 09/28/2021 Ordering Physician: TAVO PADGETT, Referring Physician: TAVO PADGETT, Tech: Jorge Luis Osborn MBA, RDMS, RVT, RDCS, RTR APPROVED REPORT Patient Location: OUT-PATIENT Indications PVD Duplex Results A/PTransverseLongitudinal Proximal Aorta 1.9cm1.8cm Mid Aorta 1.9cm1.3cm Distal Aorta 1.3cm.71cm Doppler VelocityWaveform Proximal Aorta 107.0 cm/sec Aorta Mid. 108.0 cm/sec Distal Aorta 182.0 cm/sec Rt. Common Iliac Atjeeg65.0 cm/sec Lt. Common Iliac Artery 192.0 cm/sec Findings Grayscale images of the abdominal aorta demonstrates moderate diffuse atherosclerotic plaque. The abdominal aorta measures 1.9 cm in maximum dimension. Spectral waveforms and color Doppler are grossly within normal limits in the abdominal aorta. There is moderate left external iliac disease of probably less than 50% based on velocity criteria Critical Notification Critical Value: No <Conclusion> 1. No significant abdominal aortic aneurysm Signed by : Rolando Rizzo, Electronically Approved : 09/28/2021 16:13:07
== END ==
LOC: US 10:00
PROVIDERS: ATTEND Internal Medicine Cardiovascular Disease
DX: I70.0 Atherosclerosis of aorta (principal); I73.9 Peripheral vascular disease, unspecified
CPT/HCPCS: 76770

== ENCOUNTER 2021-10-21 13:06 | Inpatient (IN) | payer MEDICAID ==
[~2021-10-21] VITALS: Ht 170.2 cm; Wt 49.9 kg
--- NOTE | 2021-10-21 14:30 | PHYS DOC ---
Past Medical History Past Medical History: COPD, Heart Disease Additional Past Medical Histor: PANCREATIC PROBLEM ,PNEUMOTHORAX; PAD (ARTHUR DOMINGUEZ APRN) Past Surgical History: Appendectomy Additional Past Surgical Histo: BILATERAL LEG STENTS R/T PVD. (ARTHUR DOMINGUEZ APRN) Smoking Status: Current Every Day Smoker Alcohol Use: None Drug Use: None (ARTHUR DOMINGUEZ APRN) General Adult EDM: Chief Complaint: LOWER EXT PAIN HPI: HPI: Patient is a 65-year-old female who presents to the emergency department for left thigh lower extremity pain that started a couple of days ago. Patient reports that she has a history of PAD and has stents in bilateral lower extremities and she thinks she has an arterial thrombus in both of her lower ext remities. She reports no pain at rest but pain with ambulation. She is also reporting decreased palpable pulse and coolness to her left lower extremity. Patient denies any chest pain, increased shortness of breath, fever. Patient does have chronic shortness of breath due to COPD and she is a current smoker. Patient also has a history of hyperlipidemia, anxiety and depression. She takes 81 mg aspirin. No blood thinner use. She denies any redness, warmth, swelling to her lower extremities. (ARTHUR DOMINGUEZ APRN) Review of Systems: Review of Systems: Constitutional: See HPI Respiratory: See HPI Cardiovascular: See HPI Musculoskeletal: See HPI Integument: See HPI Neurologic: See HPI (ARTHUR DOMINGUEZ APRN) Heart Score: C/O Chest Pain: No Risk Factors: Risk Factors: DM, Current or recent (<one month) smoker, HTN, HLP, family history of CAD, obesity. Risk Scores: Score 0 - 3: 2.5% MACE over next 6 weeks - Discharge Home Score 4 - 6: 20.3% MACE over next 6 weeks - Admit for Clinical Observation Score 7 - 10: 72.7% MACE over next 6 weeks - Early Invasive Strategies (ARTHUR DOMINGUEZ APRN) Allergies: Allergies: Allergies Coded Allergies Type Severity Reaction Last Updated Verified metronidazole Allergy Intermediate 10/21/21 Yes (ARTHUR DOMINGUEZ APRN) Physical Exam: PE: Constitutional: Well developed, well nourished, no acute distress, non-toxic appearance. [] HENT: Normocephalic, atraumatic, bilateral external ears normal, oropharynx moist, no oral exudates, nose normal. [] Eyes: PERRL, EOMI, conjunctiva normal, no discharge. [] Neck: Normal range of motion, no stridor Cardiovascular:Heart rate regular rhythm, no murmur [] Lungs & Thorax: Bilateral breath sounds clear to auscultation [] Abdomen: Soft and flat Skin: Warm, dry, no erythema, no rash. [] Back: Normal range of motion Extremities: No tenderness, no cyanosis, no clubbing, ROM intact, no edema. [] There is no redness, warmth, swelling noted to bilateral lower extremities. Patient does have pain reported to her left upper thigh worse with ambulation. Patient has weight palpable pulse to bilateral DP/PT. Patient reports tingling sensation in her left foot only with ambulation. There is no pallor, paralysis or coolness noted to bilateral lower extremities. Patient is able to bear weight and ambulate. Neurologic: Alert and oriented X 3, normal motor function, normal sensory function, no focal deficits noted. [] Psychologic: Affect normal, judgement normal, mood normal. [] (ARTHUR DOMINGUEZ APRN) Current Patient Data: Labs: Laboratory Tests Test 10/21/21 14:30 White Blood Count 9.5 x10^3/uL Red Blood Count 4.19 x10^6/uL Hemoglobin 13.8 g/dL Hematocrit 41.4 % Mean Corpuscular Volume 99 fL Mean Corpuscular Hemoglobin 33 pg Mean Corpuscular Hemoglobin Concent 33 g/dL Red Cell Distribution Width 14.8 % Platelet Count 230 x10^3/uL Neutrophils (%) (Auto) 75 % Lymphocytes (%) (Auto) 21 % Monocytes (%) (Auto) 3 % Eosinophils (%) (Auto) 1 % Basophils (%) (Auto) 0 % Neutrophils # (Auto) 7.2 x10^3/uL Lymphocytes # (Auto) 2.0 x10^3/uL Monocytes # (Auto) 0.3 x10^3/uL Eosinophils # (Auto) 0.1 x10^3/uL Basophils # (Auto) 0.0 x10^3/uL Sodium Level 147 mmol/L Potassium Level 3.7 mmol/L Chloride Level 106 mmol/L Carbon Dioxide Level 29 mmol/L Anion Gap 12 Blood Urea Nitrogen 21 mg/dL Creatinine 1.0 mg/dL Estimated GFR (Cockcroft-Gault) 56.0 BUN/Creatinine Ratio 21 Glucose Level 127 mg/dL Calcium Level 9.1 mg/dL Total Bilirubin 0.5 mg/dL Aspartate Amino Transf (AST/SGOT) 19 U/L Alanine Aminotransferase (ALT/SGPT) 29 U/L Alkaline Phosphatase 146 U/L Troponin I High Sensitivity 4 ng/L Total Protein 7.3 g/dL Albumin 4.0 g/dL Albumin/Globulin Ratio 1.2 Current Medications Medications (Trade) Dose Ordered Sig/Elizabeth Route PRN Reason Start Time Stop Time Status Last Admin Dose Admin Iohexol (Omnipaque 350 Mg/ml) 90 ml 1X ONCE IV 10/21/21 16:30 10/21/21 16:38 DC 10/21/21 16:50 Info (CONTRAST GIVEN -- Rx MONITORING) 1 each PRN DAILY PRN MC SEE COMMENTS 10/21/21 16:45 10/23/21 16:44 Vital Signs: Vital Signs Date Time Temp Pulse Resp B/P (MAP) Pulse Ox O2 Delivery O2 Flow Rate FiO2 10/21/21 14:05 76 18 115/63 (80) 97 Room Air 10/21/21 13:43 98.4 98.4 (ARTHUR DOMINGUEZ CORE FITTER) EKG: EKG: EKG performed by ER staff at 1537 shows sinus rhythm with rate of 62, QTC 445, no STEMI Read by Dr. Aragon [] (ARTHUR DOMINGUEZ CORE FITTER) Radiology/Procedures: Radiology/Procedures: []Comparisons: Ultrasound same day FINDINGS: Visualized portions of the thyroid are unremarkable. No enlarged mediastinal lymph nodes are identified. Heart size is normal. No pericardial effusion. Thoracic aorta has normal course and caliber. Pulmonary artery is not enlarged. Airways are patent. No consolidation or pneumothorax. Mild centrilobular e mphysematous change at the upper lungs. No suspicious lung nodules. No pleural effusion or thickening. Liver, spleen, pancreas, gallbladder and adrenals are unremarkable. No perinephric inflammation or hydronephrosis. No renal or ureteral calculi are identified. Bladder is partially distended. Uterus is nonenlarged. No abnormal adnexal mass. Moderate amount stool noted in colon. Appendix is normal. No free intra- abdominal air or fluid. No obstruction. Metallic stents at the common iliac arteries bilaterally. The left artery stent is is occluded. No enlarged intra-abdominal lymph nodes are identified. No suspicious osseous lesions or acute fractures. Right lower extremity: Right SFA is patent. Profunda artery is patent. Popliteal artery is patent. Anterior tibial, posterior tibial and peroneal arteries are patent level the ankle. No suspicious osseous lesions or acute fractures. Soft tissues are unremarkable. Left lower extremity: Left SFA is patent. Profunda artery is patent. Popliteal artery is patent. Anterior tibial, posterior tibial and peroneal arteries are patent level the ankle. No suspicious osseous lesions or acute fractures. Soft tissues are unremarkable. IMPRESSION: 1. Occlusion of the left common iliac artery stent. The more distal common iliac artery is patent, likely secondary to collateral flow 2. Three-vessel runoff of the bilateral lower extremities. 3. Mild centrilobular emphysematous change at the upper lungs Electronically signed by: Christopher Woodson MD (10/21/2021 5:42 PM) [facility] DICTATED and SIGNED BY: CHRISTOPHER WOODSON MD DATE: 10/21/211723 (ARTHUR DOMINGUEZ APRN) Course & Med Decision Making: Course & Med Decision Making Pertinent Labs and Imaging studies reviewed. (See chart for details) [] Patient presents to the emergency department for lower extremity pain. Patient has a history of PAD and has had stents in bilateral lower extremities. Believes that she has an arterial thrombus in her bilateral lower extremities. Weak palpable PT and DP pulses.. A Doppler was ordered as well as a arterial ultrasound of bilateral lower extremities. Lab work was also ordered. Dorsalis pedis pulses were noted with Doppler bilaterally and marked. CBC unremarkable. Patient's sodium was 147, negative troponin. Ultrasound showed no flow in the right peroneal artery and significant inflow disease in the left leg and to correlate with a CTA of abdomen and pelvis. CTA of chest abdomen pelvis with runoff was ordered and patient does have three-vessel runoff to bilateral lower extremities and an occlusion of the left common iliac artery stent with collateral flow. I discussed these findings with vascular surgery who advised to admit the patient to the hospitalist and started heparin drip. I discussed these findings with Dr. Gomez who agreed to admit the patient under his services. ER bridge orders placed. I discussed these findings with patient as well as care plan she is agreeable to admission. (ARTHUR DOMINGUEZ APRN) Course & Med Decision Making Patients Care and treatment plan provided by ER Nurse Practitioner. I was available for consult. Patient's chart reviewed. (MERCEDES ALMEIDA DO) Faisal Disclaimer: Dragjessica Disclaimer: This electronic medical record was generated, in whole or in part, using a voice recognition dictation system. (ARTHUR DOMINGUEZ APRN) Departure Departure Impression: Primary Impression: Arterial occlusion, lower extremity Disposition: ADMITTED INPATIENT Admitting Physician: Henok Gomez (ARTHUR DOMINGUEZ APRN) Condition: STABLE Referrals: CAESAR VINSON MD (PCP) ARTHUR DOMINGUEZ APRN Oct 21, 2021 14:30 MERCEDES ALMEIDA DO Oct 22, 2021 03:56
[2021-10-21 14:45] LABS: BASO % 0 % (0-3); EOS # 0.1 x10^3/uL (0.0-0.7); EOS % 1 % (0-3); HEMATOCRIT 41.4 % (36.0-47.0); HEMOGLOBIN 13.8 g/dL (12.0-15.5); LYMPH % 21 % (24-48); MEAN CORPUSCULAR HEMOGLOBIN 33 pg (25-35); MEAN CORPUSCULAR HGB CONC 33 g/dL (31-37); MEAN CORPUSCULAR VOLUME 99 fL (79-100); MONO # 0.3 x10^3/uL (0.0-1.1); MONO % 3 % (0-9); NEUT # 7.2 x10^3/uL (1.8-7.7); NEUT % 75 % (31-73); PLATELET COUNT 230 x10^3/uL (140-400); RED BLOOD COUNT 4.19 x10^6/uL (3.50-5.40); RED CELL DISTRIBUTION WIDTH 14.8 % (11.5-14.5); WHITE BLOOD COUNT 9.5 x10^3/uL (4.0-11.0)
[2021-10-21 14:59] LABS: CALCIUM 9.1 mg/dL (8.5-10.1); POTASSIUM 3.7 mmol/L (3.5-5.1)
[2021-10-21 15:01] LABS: ALBUMIN/GLOBULIN RATIO 1.2 (1.0-1.7); TOTAL BILIRUBIN 0.5 mg/dL (0.2-1.0); TOTAL PROTEIN 7.3 g/dL (6.4-8.2)
--- NOTE | 2021-10-21 16:13 | RAD ---
EXAMINATION: US DPLX ARTR EXTREM LOWER BILAT. HISTORY: 65 years Female Reason: lower extremity pain hx of arterial thrombus with stents COMPARISON: None. FINDINGS: Grayscale images demonstrate atherosclerotic plaque in the femoropopliteal segments. There is a bipha sic catheter flow in the femoropopliteal segments and to the posterior tibial artery. There is a mono phasic flow in the right dorsalis pedis artery. Diminished velocity of 23 cm/s in the dorsalis pedis arteries also seen. There is no flow detected the in the peroneal artery. Left leg: Mild atherosclerotic plaque is seen on grayscale images provided. There is a color Doppler flow demon strated from the common femoral to dorsalis pedis and anterior tibial arteries. The waveforms are mon ophasic from the left the common femoral artery and throughout to the distal leg with the diminished flow velocities particularly at the distal SFA and the popliteal artery where the velocity is 22 cm/s . There is also diminished velocity of flow in the infrapopliteal arteries ranging from 15-19 cm/s. IMPRESSION: 1. Right leg: No flow is detected in the right peroneal artery suggestive of occlusion. 2. Left leg: Monophasic waveforms seen throughout with diminished velocities concerning for significant inflow dis ease. Consider correlation with CTA abdomen and pelvis. Electronically signed by: Florencio Sanz MD (10/21/2021 4:11 PM) [id number]
[2021-10-21] MEDS ORDERED: IOHEXOL 350 MG/ML 100 ML VIAL. IV ONE (16:30)
[2021-10-21] MEDS ORDERED: CONTRAST GIVEN. MC PRN (16:45)
--- NOTE | 2021-10-21 17:44 | RAD ---
Exam: CTA chest, abdomen and pelvis bilateral lower extremities INDICATION: Arterial thrombus TECHNIQUE: Sequential axial images through the chest, abdomen, pelvis and bilateral lower extremities obtained following the administration of 90 is of Isovue-370 IV contrast. Sagittal and coronal refor matted images were reconstructed from the axial data and reviewed. 3-D reformatted images were recons tructed from the axial data and reviewed. Exposure: One or more of the following in the visualized dose reduction techniques were utilized for this examination: 1. Automated exposure control 2. Adjustment of the MA and/or KV according to patient size 3. Use of iterative of reconstructive technique Comparisons: Ultrasound same day FINDINGS: Visualized portions of the thyroid are unremarkable. No enlarged mediastinal lymph nodes are identifi ed. Heart size is normal. No pericardial effusion. Thoracic aorta has normal course and caliber. Pulmonar y artery is not enlarged. Airways are patent. No consolidation or pneumothorax. Mild centrilobular emphysematous change at the upper lungs. No suspicious lung nodules. No pleural effusion or thickening. Liver, spleen, pancreas, gallbladder and adrenals are unremarkable. No perinephric inflammation or hydronephrosis. No renal or ureteral calculi are identified. Bladder is partially distended. Uterus is nonenlarged. No abnormal adnexal mass. Moderate amount stool noted in colon. Appendix is normal. No free intra-abdominal air or fluid. No ob struction. Metallic stents at the common iliac arteries bilaterally. The left artery stent is is occluded. No enlarged intra-abdominal lymph nodes are identified. No suspicious osseous lesions or acute fractures. Right lower extremity: Right SFA is patent. Profunda artery is patent. Popliteal artery is patent. Anterior tibial, posterior tibial and peroneal arteries are patent level the ankle. No suspicious osseous lesions or acute fractures. Soft tissues are unremarkable. Left lower extremity: Left SFA is patent. Profunda artery is patent. Popliteal artery is patent. Anterior tibial, posterior tibial and peroneal arteries are patent level the ankle. No suspicious osseous lesions or acute fractures. Soft tissues are unremarkable. IMPRESSION: 1. Occlusion of the left common iliac artery stent. The more distal common iliac artery is patent, l ikely secondary to collateral flow 2. Three-vessel runoff of the bilateral lower extremities. 3. Mild centrilobular emphysematous change at the upper lungs Electronically signed by: Christopher Jones MD (10/21/2021 5:42 PM) [facility]
[2021-10-21] MEDS ORDERED: HEPARIN 25,000UTS/250ML PREMIX 250 ML IV PRN (19:45)
[2021-10-21] MEDS ORDERED: HEPARIN for IV BOLUS 10,000 UNIT/10 ML VIAL. IV PRN ×2 (19:45)
[2021-10-21] MEDS ORDERED: MORPHINE SULFATE 2 MG/ML INJ. IVP PRN (20:00)
[2021-10-21 21:00] VITALS: BP 128/45
--- NOTE | 2021-10-21 21:00 | NUR ---
Patient, MARIA DOLORES SLADE, 65 y/o female, received to room 202, a/o x 4, plan of care discussed, information booklet given, Informed will start a heparin drip, Monitoring,
[2021-10-21] MEDS ORDERED: MIRT45TA58 PO (22:36)
[2021-10-21] MEDS ORDERED: ATOR40TA59 PO (22:36)
[2021-10-21] MEDS ORDERED: MULTIVITAMIN with MINERAL TABLET. PO SCH (22:45)
[2021-10-21] MEDS: ATORVASTATIN CALCIUM 40 MG TABLET. PO SCH (23:14)
[2021-10-21] MEDS: ALPRAZolam 0.5 MG TABLET PO SCH (23:15)
[2021-10-21 23:30] VITALS: BP 118/53
[2021-10-21] MEDS: MIRTAZAPINE 15 MG TABLET PO SCH (23:35)
[2021-10-22] VITALS (16 sets, daily range): BP systolic 105–149; BP diastolic 51–73
[2021-10-22] MEDS ORDERED: MIRTAZAPINE 15 MG TABLET PO SCH
[2021-10-22] MEDS ORDERED: ALPRAZolam 0.5 MG TABLET PO SCH
[2021-10-22] MEDS ORDERED: ATORVASTATIN CALCIUM 40 MG TABLET. PO SCH
[2021-10-22 04:02] LABS: BASO % 0 % (0-3); EOS # 0.2 x10^3/uL (0.0-0.7); EOS % 3 % (0-3); HEMATOCRIT 38.5 % (36.0-47.0); LYMPH # 2.9 x10^3/uL (1.0-4.8); LYMPH % 40 % (24-48); MEAN CORPUSCULAR HEMOGLOBIN 34 pg (25-35); MEAN CORPUSCULAR HGB CONC 34 g/dL (31-37); MEAN CORPUSCULAR VOLUME 99 fL (79-100); MONO # 0.4 x10^3/uL (0.0-1.1); MONO % 6 % (0-9); NEUT # 3.7 x10^3/uL (1.8-7.7); NEUT % 52 % (31-73); PLATELET COUNT 202 x10^3/uL (140-400); RED BLOOD COUNT 3.88 x10^6/uL (3.50-5.40); RED CELL DISTRIBUTION WIDTH 14.9 % (11.5-14.5); WHITE BLOOD COUNT 7.2 x10^3/uL (4.0-11.0)
[2021-10-22 04:16] LABS: ALBUMIN 3.3 g/dL (3.4-5.0); CALCIUM 8.8 mg/dL (8.5-10.1); CREATININE 0.9 mg/dL (0.6-1.0); GFR 63.2; POTASSIUM 3.7 mmol/L (3.5-5.1); TOTAL BILIRUBIN 0.3 mg/dL (0.2-1.0); TOTAL PROTEIN 6.7 g/dL (6.4-8.2)
[2021-10-22] MEDS ORDERED: CHOL5000 PO (06:22)
[2021-10-22] MEDS ORDERED: VALA10008 PO (06:22)
[2021-10-22] MEDS ORDERED: AZEL137S3 NS (06:22)
[2021-10-22] MEDS ORDERED: TIZA-75 PO (06:22)
[2021-10-22] MEDS ORDERED: MELO15TA23 PO (06:22)
[2021-10-22] MEDS ORDERED: DICL150D9 TP (06:22)
--- NOTE | 2021-10-22 07:55 | EKG ---
[facility] [address] [place] [address] Test Date: 2021-10-21 Test Time: 15:37:01 Pat Name: MARIA DOLORES SLADE Department: Room: 202 1 Gender: F Nurses Director: : 1955 Requested By: ARTHUR DOMINGUEZ Order Number: [id number] Reading MD: Rolando Rizzo MD Measurements Intervals [place] Rate: 62 P: 56 CA: 148 QRS: 63 QRSD: 78 T: 40 QT: 436 QTc: 445 Interpretive Statements SINUS RHYTHM Electronically Signed On 10-23-2021 17:42:57 CDT by Rolando Rizzo MD
--- NOTE | 2021-10-22 08:41 | PDOC ---
Provider Note Date of Service: DATE: 10/22/21 TIME: 08:41 Provider Note dictated Justifications for Admission Other Justification BETHANIE MATHEW MD Oct 22, 2021 08:41
[2021-10-22] MEDS ORDERED: MULTIVITAMIN with MINERAL TABLET. PO SCH (09:00)
[2021-10-22] MEDS: VORAPAXAR SULFATE 2.08 MG PO SCH (09:00)
--- NOTE | 2021-10-22 09:27 | PDOC2 ---
CONSULT Date of Consult Date of Consult DATE: 10/22/21 TIME: 09:14 Reason for Consult Reason for Consult: Occluded left iliac stent, short distance claudication, mildly decreased sensation in the left foot Identification/Chief Complaint Chief Complaint Left lower extremity short distance claudication and numbness and tingling in the left foot Source Source: Patient History of Present Illness Reason for Visit: Ms. Hubbard is a 65-year-old female who has previously undergone bilateral common iliac artery stents and left external iliac artery stenting. The stents were placed prior to 2013. She had the stents reangioplastied in 2013 and has not had issues with her lower extremity since then. The stents were originally placed for short distance claudication. She reports that approximately 1 week ago she had a upper respiratory infection and was relatively immobile for several days. Upon feeling better from this and increasing her activity she noticed severe pain in the left calf and thigh with ambulation. This went on for 3 to 4 days. Yesterday she noticed increased numbness and tingling in the left foot. This caused her to present to the emergency department here where she was found to have occlusion of her left common iliac stent on CT scan. She denies any sensory changes at this time after she has been initiated on heparin therapy. She has had an improvement in her pain with ambulation to bathroom as well. However, she has not attempted to ambulate in the hallways or beyond. She is on aspirin and Zontivity. She does continue to smoke approximately half a pack per day which is decreased from what she has smoked previously. She states that she was on Chantix which helped immensely and she did not have any desire to smoke on this. However it was stopped due to insurance coverage per the patient. Past Medical History Cardiovascular: Other (PAD) Pulmonary: COPD GI: Other (pancreatic insufficiency) Heme/Onc: No pertinent hx Past Surgical History Past Surgical History: Other (iliac stent placement) Family History Family History both parents with PAD, mother had amputation Social History <1 pack per day ALCOHOL: occassional Drugs: None Current Problem List Problem List Problems Medical Problems: (1) Arterial occlusion, lower extremity Status: Acute Current Medications Current Medications Current Medications Iohexol (Omnipaque 350 Mg/ml) 90 ml 1X ONCE IV Last administered on 10/21/21at 16:50; Start 10/21/21 at 16:30; Stop 10/21/21 at 16:38; Status DC Info (CONTRAST GIVEN -- Rx MONITORING) 1 each PRN DAILY PRN MC SEE COMMENTS; Start 10/21/21 at 16:45; Stop 10/23/21 at 16:44 Heparin Sodium/ Dextrose 250 ml @ 8.64 mls/hr CONT PRN IV PER PROTOCOL Last administered on 10/21/21at 21:43; Start 10/21/21 at 19:45 Heparin Sodium (Porcine) (Heparin Sodium) 1,600 unit PRN Q6HRS PRN IV FOR UFH LEVEL LESS THAN 0.2 Last administered on 10/22/21at 04:40; Start 10/21/21 at 19:45 Heparin Sodium (Porcine) (Heparin Sodium) 800 unit PRN Q6HRS PRN IV FOR UFH LEVEL 0.2 - 0.29; Start 10/21/21 at 19:45 Morphine Sulfate (Morphine Sulfate) 2 mg PRN Q2HR PRN IVP PAIN; Start 10/21/21 at 20:00; Stop 10/22/21 at 19:59 Alprazolam (Xanax) 0.5 mg BID PO ; Start 10/22/21 at 00:00; Stop 10/21/21 at 22:48; Status DC Atorvastatin Calcium (Lipitor) 40 mg QHS PO ; Start 10/22/21 at 00:00; Stop 10/21/21 at 22:48; Status DC Simvastatin (Zocor) 40 mg QHS PO ; Start 10/22/21 at 21:00; Status UNV Mirtazapine (Remeron) 45 mg QHS PO ; Start 10/22/21 at 00:00; Stop 10/21/21 at 22:48; Status DC Multivitamins (Thera M Plus) 1 tab DAILY PO ; Start 10/22/21 at 09:00; Stop 10/21/21 at 22:48; Status DC Alprazolam (Xanax) 0.5 mg BID PO Last administered on 10/21/21at 23:15; Start 10/21/21 at 22:45 Atorvastatin Calcium (Lipitor) 40 mg QHS PO Last administered on 10/21/21at 23:14; Start 10/21/21 at 22:45 Mirtazapine (Remeron) 45 mg QHS PO Last administered on 10/21/21at 23:35; Start 10/22/21 at 00:00 Multivitamins (Thera M Plus) 1 tab DAILY PO Last administered on 10/21/21at 23:14; Start 10/21/21 at 22:45 Famotidine (Pepcid) 20 mg BID PO ; Start 10/22/21 at 09:00 Tizanidine HCl (Zanaflex) 4 mg TID PRN PRN PO MUSCLE SPASMS; Start 10/22/21 at 08:30 Non-Formulary Medication (Melatonin ) 10 mg QHS PO ; Start 10/22/21 at 21:00; Status UNV Sertraline HCl (Zoloft) 100 mg DAILY PO ; Start 10/22/21 at 09:00 Non-Formulary Medication (Vorapaxar Sulfate (Zontivity)) 2.08 mg DAILY PO ; Start 10/22/21 at 09:00; Status UNV Active Scripts Active Pepcid (Famotidine) 20 Mg Tablet 20 Mg PO BID Reported Valacyclovir (Valacyclovir Hcl) 1,000 Mg Tablet 1 Tab PO DAILY Tizanidine Hcl 4 Mg Tablet 4 Mg PO TID PRN PRN Meloxicam 15 Mg Tablet 15 Mg PO DAILY PRN Vitamin D3 (Vitamin D) 125 Mcg Capsule 125 Mcg PO WEEKLY 5,000 UNITS = 125 MCG Azelastine Hcl 137 Mcg/0.137 Ml Armona.pump 2 Armona NS BID 30 Days Diclofenac Sodium 150 Ml Drops 15 Oliverio TP QID 30 Days Atorvastatin Calcium 40 Mg Tablet 1 Tab PO QHS Mirtazapine 45 Mg Tablet 1 Tab PO QHS Zontivity (Vorapaxar Sulfate) 2.08 Mg Tablet 2.08 Mg PO DAILY Zoloft (Sertraline Hcl) 100 Mg Tablet 1 Tab PO DAILY Alprazolam 0.5 Mg Tablet 1 Tab PO BID Proair Hfa Inhaler (Albuterol Sulfate) 8.5 Gm Hfa.aer.ad 2 Puff INH PRN Q6HRS PRN Aspirin 81 Mg Tab.chew 1 Tab PO DAILY Spiriva (Tiotropium Warren) 18 Mcg Cap.w.dev 1 Cap IH BID Melatonin 3 Mg Tablet [address] Q[address] 24,000 Units Capsule (Lipase/Protease/Amylase) 1 Each Capsule.dr 1 Cap PO BID Multi-Vitamin Daily (Multivitamin) 1 Each Tablet 1 Each PO DAILY Zocor (Simvastatin) 40 Mg Tablet 1 Tab PO QHS Allergies Allergies: Coded Allergies: metronidazole (Verified Allergy, Intermediate, 10/21/21) ROS General: No: Chills, Night Sweats, Fatigue, Malaise, Appetite, Other PSYCHOLOGICAL ROS: No: Anxiety, Behavioral Disorder, Concentration difficultie, Decreased libido, Depression, Disorientation, Hallucinations, Hostility, Irritablity, Memory difficulties, Mood Swings, Obsessive thoughts, Physical abuse, Sexual abuse, Sleep disturbances, Suicidal ideation, Other Eyes: No Blurry vision, No Decreased vision, No Double vision, No Dry eyes, No Excessive tearing, No Eye Pain, No Itchy Eyes, No Loss of vision, No Photophobia, No Scotomata, No Uses contacts, No Uses glasses, No Other HEENT: No: Heacaches, Visual Changes, Hearing change, Nasal congestion, Nasal discharge, Oral lesions, Sinus pain, Sore Throat, Epistaxis, Sneezing, Snoring, Tinnitus, Vertigo, Vocal changes, Other ALLERGY AND IMMUNOLOGY: No: Hives, Insect Bite Sensitivity, Itchy/Watery Eyes, Nasal Congestion, Post Nasal Drip, Seasonal Allergies, Other Hematological and Lymphatic: No: Bleeding Problems, Blood Clots, Blood Transfusions, Brusing, Night Sweats, Pallor, Swollen Lymph Nodes, Other ENDOCRINE: YES: Other (pancreatic insufficiency) Respiratory: YES: Cough Cardiovascular: No Chest Pain, No Palpitations, No Orthopnea, No Paroxysmal Noc. Dyspnea, No Edema, No Lt Headedness, No Other Gastrointestinal: No Nausea, No Vomiting, No Abdominal Pain, No Diarrhea, No Constipation, No Melena, No Hematochezia, No Other Neurological: No Behavorial Changes, No Bowel/Bladder ControlChng, No Confusion, No Dizziness, No Gait Disturbance, No Headaches, No Impaired Coord/balance, No Memory Loss, No Numbness/Tingling, No Seizures, No Speech Pro blems, No Tremors, No Visual Changes, No Weakness, No Other Skin: No Dry Skin, No Eczema, No Hair Changes, No Lumps, No Mole Changes, No Mottling, No Nail Changes, No Pruritus, No Rash, No Skin Lesion Changes, No Other, No Acne Physical Exam General: Alert, Oriented X3 HEENT: Atraumatic, Mucous membr. moist/pink Lungs: Normal air movement Heart: Regular rate Abdomen: Soft, No tenderness Extremities: No clubbing, No cyanosis, Other (2+ R femoral, DP/PT, 1+ L femoral, nonpalpable DP/PT, doppler L PT) Skin: No rashes, No breakdown Neuro: Other (sensation and motor intact to BLE) Psych/Mental Status: Mental status NL, Mood NL Vitals VITALS Vital Signs Date Time Temp Pulse Resp B/P (MAP) Pulse Ox O2 Delivery O2 Flow Rate FiO2 10/22/21 07:45 Room Air 10/22/21 07:30 98.8 62 16 141/55 (83) 95 98.8 Labs Labs Laboratory Tests Test 10/21/21 14:30 10/22/21 03:30 White Blood Count 9.5 x10^3/uL (4.0-11.0) 7.2 x10^3/uL (4.0-11.0) Red Blood Count 4.19 x10^6/uL (3.50-5.40) 3.88 x10^6/uL (3.50-5.40) Hemoglobin 13.8 g/dL (12.0-15.5) 13.0 g/dL (12.0-15.5) Hematocrit 41.4 % (36.0-47.0) 38.5 % (36.0-47.0) Mean Corpuscular Volume 99 fL (79-100) 99 fL (79-100) Mean Corpuscular Hemoglobin 33 pg (25-35) 34 pg (25-35) Mean Corpuscular Hemoglobin Concent 33 g/dL (31-37) 34 g/dL (31-37) Red Cell Distribution Width 14.8 % (11.5-14.5) 14.9 % (11.5-14.5) Platelet Count 230 x10^3/uL (140-400) 202 x10^3/uL (140-400) Neutrophils (%) (Auto) 75 % (31-73) 52 % (31-73) Lymphocytes (%) (Auto) 21 % (24-48) 40 % (24-48) Monocytes (%) (Auto) 3 % (0-9) 6 % (0-9) Eosinophils (%) (Auto) 1 % (0-3) 3 % (0-3) Basophils (%) (Auto) 0 % (0-3) 0 % (0-3) Neutrophils # (Auto) 7.2 x10^3/uL (1.8-7.7) 3.7 x10^3/uL (1.8-7.7) Lymphocytes # (Auto) 2.0 x10^3/uL (1.0-4.8) 2.9 x10^3/uL (1.0-4.8) Monocytes # (Auto) 0.3 x10^3/uL (0.0-1.1) 0.4 x10^3/uL (0.0-1.1) Eosinophils # (Auto) 0.1 x10^3/uL (0.0-0.7) 0.2 x10^3/uL (0.0-0.7) Basophils # (Auto) 0.0 x10^3/uL (0.0-0.2) 0.0 x10^3/uL (0.0-0.2) Sodium Level 147 mmol/L (136-145) 143 mmol/L (136-145) Potassium Level 3.7 mmol/L (3.5-5.1) 3.7 mmol/L (3.5-5.1) Chloride Level 106 mmol/L (98-107) 108 mmol/L (98-107) Carbon Dioxide Level 29 mmol/L (21-32) 27 mmol/L (21-32) Anion Gap 12 (6-14) 8 (6-14) Blood Urea Nitrogen 21 mg/dL (7-20) 22 mg/dL (7-20) Creatinine 1.0 mg/dL (0.6-1.0) 0.9 mg/dL (0.6-1.0) Estimated GFR (Cockcroft-Gault) 56.0 63.2 BUN/Creatinine Ratio 21 (6-20) 24 (6-20) Glucose Level 127 mg/dL (70-99) 105 mg/dL (70-99) Calcium Level 9.1 mg/dL (8.5-10.1) 8.8 mg/dL (8.5-10.1) Total Bilirubin 0.5 mg/dL (0.2-1.0) 0.3 mg/dL (0.2-1.0) Aspartate Amino Transf (AST/SGOT) 19 U/L (15-37) 21 U/L (15-37) Alanine Aminotransferase (ALT/SGPT) 29 U/L (14-59) 28 U/L (14-59) Alkaline Phosphatase 146 U/L (46-116) 139 U/L (46-116) Troponin I High Sensitivity 4 ng/L (4-50) Total Protein 7.3 g/dL (6.4-8.2) 6.7 g/dL (6.4-8.2) Albumin 4.0 g/dL (3.4-5.0) 3.3 g/dL (3.4-5.0) Albumin/Globulin Ratio 1.2 (1.0-1.7) 1.0 (1.0-1.7) Heparin Anti-Xa Act, Unfractionated 0.18 IU/mL (0.30-0.70) Laboratory Tests Test 10/21/21 14:30 10/22/21 03:30 White Blood Count 9.5 x10^3/uL (4.0-11.0) 7.2 x10^3/uL (4.0-11.0) Red Blood Count 4.19 x10^6/uL (3.50-5.40) 3.88 x10^6/uL (3.50-5.40) Hemoglobin 13.8 g/dL (12.0-15.5) 13.0 g/dL (12.0-15.5) Hematocrit 41.4 % (36.0-47.0) 38.5 % (36.0-47.0) Mean Corpuscular Volume 99 fL (79-100) 99 fL (79-100) Mean Corpuscular Hemoglobin 33 pg (25-35) 34 pg (25-35) Mean Corpuscular Hemoglobin Concent 33 g/dL (31-37) 34 g/dL (31-37) Red Cell Distribution Width 14.8 % (11.5-14.5) 14.9 % (11.5-14.5) Platelet Count 230 x10^3/uL (140-400) 202 x10^3/uL (140-400) Neutrophils (%) (Auto) 75 % (31-73) 52 % (31-73) Lymphocytes (%) (Auto) 21 % (24-48) 40 % (24-48) Monocytes (%) (Auto) 3 % (0-9) 6 % (0-9) Eosinophils (%) (Auto) 1 % (0-3) 3 % (0-3) Basophils (%) (Auto) 0 % (0-3) 0 % (0-3) Neutrophils # (Auto) 7.2 x10^3/uL (1.8-7.7) 3.7 x10^3/uL (1.8-7.7) Lymphocytes # (Auto) 2.0 x10^3/uL (1.0-4.8) 2.9 x10^3/uL (1.0-4.8) Monocytes # (Auto) 0.3 x10^3/uL (0.0-1.1) 0.4 x10^3/uL (0.0-1.1) Eosinophils # (Auto) 0.1 x10^3/uL (0.0-0.7) 0.2 x10^3/uL (0.0-0.7) Basophils # (Auto) 0.0 x10^3/uL (0.0-0.2) 0.0 x10^3/uL (0.0-0.2) Sodium Level 147 mmol/L (136-145) 143 mmol/L (136-145) Potassium Level 3.7 mmol/L (3.5-5.1) 3.7 mmol/L (3.5-5.1) Chloride Level 106 mmol/L (98-107) 108 mmol/L (98-107) Carbon Dioxide Level 29 mmol/L (21-32) 27 mmol/L (21-32) Anion Gap 12 (6-14) 8 (6-14) Blood Urea Nitrogen 21 mg/dL (7-20) 22 mg/dL (7-20) Creatinine 1.0 mg/dL (0.6-1.0) 0.9 mg/dL (0.6-1.0) Estimated GFR (Cockcroft-Gault) 56.0 63.2 BUN/Creatinine Ratio 21 (6-20) 24 (6-20) Glucose Level 127 mg/dL (70-99) 105 mg/dL (70-99) Calcium Level 9.1 mg/dL (8.5-10.1) 8.8 mg/dL (8.5-10.1) Total Bilirubin 0.5 mg/dL (0.2-1.0) 0.3 mg/dL (0.2-1.0) Aspartate Amino Transf (AST/SGOT) 19 U/L (15-37) 21 U/L (15-37) Alanine Aminotransferase (ALT/SGPT) 29 U/L (14-59) 28 U/L (14-59) Alkaline Phosphatase 146 U/L (46-116) 139 U/L (46-116) Troponin I High Sensitivity 4 ng/L (4-50) Total Protein 7.3 g/dL (6.4-8.2) 6.7 g/dL (6.4-8.2) Albumin 4.0 g/dL (3.4-5.0) 3.3 g/dL (3.4-5.0) Albumin/Globulin Ratio 1.2 (1.0-1.7) 1.0 (1.0-1.7) Heparin Anti-Xa Act, Unfractionated 0.18 IU/mL (0.30-0.70) Images Images CTA with left common iliac occlusion at prior stent site, reconstitution in left external iliac, runoff otherwise without issue Assessment/Plan Assessment/Plan Ms. Hubbard is a 65-year-old male with prior bilateral common iliac stents and a left external iliac stent who presents with short distance claudication and numbness and tingling of the left foot which is now improved with heparinization. She is found on imaging to have occlusion of her left common iliac stent. She was started on heparin last night and has had improvement in her symptoms overall, however I believe she would benefit from attempted lysis of the stent. She has no history of bleeding which be a contraindication to lysis. We will ask IR to evaluate her for this today. She may need additional angioplasty or extension of her stents depending on what the lysis shows. If we are unable to restore flow via endovascular techniques, she may at some point in the future require bypass to the left leg for her short distance claudication. She is currently on atorvastatin 40 mg which should be increased to high intensity 80 mg dose. I also counseled her extensively on smoking cessation. She is interested in restarting Chantix and would like someone to reach out to her insurance company regarding this. DO LORENZO Rogers KARA M DO Oct 22, 2021 09:27
[2021-10-22] MEDS: SERTRALINE 50 MG TABLET. PO SCH (09:43)
[2021-10-22] MEDS: ALPRAZolam 0.5 MG TABLET PO SCH ×2 (09:43→20:07)
[2021-10-22] MEDS: FAMOTIDINE 20 MG TABLET. PO SCH ×2 (09:43→20:06)
--- NOTE | 2021-10-22 10:02 | NUR ---
SW following. Discussed with RN, pt from home, room air, NPO. Pt having a procedure with IR today and will transfer to CVC or ICU level or care after, per RN. RN advised no SW needs at this time. SW will continue to follow.
[2021-10-22] MEDS ORDERED: IODIXANOL 320 MG/ML 100 ML VIAL. ONE (10:34)
[2021-10-22] MEDS ORDERED: LIDOCAINE WITH 8.4% SOD BICARB 3 ML DISP.SYRIN. ONE (10:35)
[2021-10-22] MEDS ORDERED: HEPARIN for ARTERIAL LINE 1,500 ML ONE (10:35)
[2021-10-22] MEDS ORDERED: fentaNYL PF VIAL 100 MCG/2 ML VIAL ONE (10:38)
[2021-10-22] MEDS ORDERED: MIDAZOLAM HCL/PF 2 MG/2 ML VIAL. ONE (10:38)
[2021-10-22] MEDS ORDERED: LIDOCAINE WITH 8.4% SOD BICARB 3 ML DISP.SYRIN. IJ ONE (10:45)
[2021-10-22] MEDS ORDERED: IODIXANOL 320 MG/ML 100 ML VIAL. IART ONE (10:45)
[2021-10-22] MEDS ORDERED: MIDAZOLAM HCL/PF 2 MG/2 ML VIAL. IV ONE (10:45)
[2021-10-22] MEDS ORDERED: fentaNYL PF VIAL 100 MCG/2 ML VIAL IV ONE (10:45)
[2021-10-22] MEDS ORDERED: ALTEPLASE 25 MG in IV NORMAL SALINE 250ML 250 ML IV SCH (11:00)
[2021-10-22] MEDS ORDERED: ONDANSETRON PF 4 MG/2 ML VIAL. ONE (11:10)
[2021-10-22] MEDS ORDERED: ONDANSETRON PF 4 MG/2 ML VIAL. IVP ONE (11:30)
[2021-10-22] MEDS ORDERED: CONTRAST GIVEN. MC PRN (11:30)
[2021-10-22] MEDS ORDERED: ONDANSETRON PF 4 MG/2 ML VIAL. IV PRN (11:45)
--- NOTE | 2021-10-22 11:56 | NUR ---
Patient was taken to IR via bed accompanied by RN's and . Patients belongings were taken down to room 107 by ANA Perkins. Report was called to ANA Kahn in ICU.
--- NOTE | 2021-10-22 11:59 | PDOC ---
Provider Note Date of Service: DATE: 10/22/21 TIME: 11:49 Provider Note IR Left common iliac artery stent thrombosis. Angio confirms cta findings. Occusion crossed, tPA thrombolysis initiated @ 1 mg tPA/hr. Plan on repeat angio tomorrow. Justifications for Admission Other Justification NADER PANG MD Oct 22, 2021 11:59
[2021-10-22] MEDS ORDERED: ALTEPLASE 25 MG in IV NORMAL SALINE 250ML 250 ML IV ONE (12:30)
--- NOTE | 2021-10-22 12:37 | RAD ---
10/22/2021 1. Left lower extremity angiogram 2. Initiation of TPA thrombolysis, thrombosed left common iliac stent Consent: The procedure was explained in its entirety to the patient or the patients designated repres entative by a member of the treatment team, including a discussion of the risks, benefits and commonl y accepted alternatives to the procedure, as well as the expected consequences of no therapy whatsoev er. Discussion of the risks included, but was not limited to, those that are most frequent and thos e that are rare but possibly severe or life-threatening, as well as the possibility of unforeseen com plications. Procedural detail: The left groin was prepped and draped using maximum sterile barrier technique, inc luding the use of: Current guideline approved cutaneous antisepsis, a large sterile sheet to establis h a sterile field. Additionally the chip machine operator wore a hat, mask, sterile gloves, a sterile gown during the procedure. Ultrasound evaluation demonstrates a left common femoral artery be patent. The artery was accessed un jenni direct ultrasound guidance using micropuncture technique. Reference ultrasound images were saved in the medical record. A 5 Tamazight vascular sheath was placed. Angiograms were obtained demonstrating occlusion of the distal aspect of the left common iliac stent. A guidewire was manipulated through the thrombosed stent. The catheter was advanced into the inferior most abdominal aorta. And angiogram was repeated demonstrati ng occlusion of the proximal stent. An infusion catheter was advanced through the thrombosed portion of the stent. TPA thrombolysis was initiated at 1 mg an hour. The patient was transferred to the inte nsive care unit in stable condition. The procedure was performed under conscious sedation including continuous cardiopulmonary monitoring via a dedicated sedation nurse. [id number] sedation time: 50 minutes Total fluoroscopy time 1.1 minutes Dose area product 5 Roberto 7 sq m Impression: Thrombosed left common iliac artery stent. tPA thrombolysis initiated. Electronically signed by: Sergio Hazel MD (10/22/2021 12:35 PM) [id number]
[2021-10-22 12:46] LABS: HEMOGLOBIN 13.2 g/dL (12.0-15.5); RED BLOOD COUNT 4.08 x10^6/uL (3.50-5.40); RED CELL DISTRIBUTION WIDTH 14.9 % (11.5-14.5); WHITE BLOOD COUNT 7.4 x10^3/uL (4.0-11.0)
[2021-10-22 12:52] LABS: CREATININE 0.8 mg/dL (0.6-1.0); GFR 72.4; POTASSIUM 4.1 mmol/L (3.5-5.1)
[2021-10-22 13:01] LABS: PARTIAL THROMBOPLASTIN TIME 68 SEC (24-38)
[2021-10-22] MEDS: ACETAMINOPHEN 325 MG TABLET. PO PRN (17:00)
[2021-10-22 19:19] LABS: PROTHROMBIN TIME PATIENT 13.8 SEC (11.7-14.0)
[2021-10-22] MEDS: MIRTAZAPINE 15 MG TABLET PO SCH (20:07)
[2021-10-22] MEDS: ATORVASTATIN CALCIUM 40 MG TABLET. PO SCH (20:07)
[2021-10-22] MEDS: MULTIVITAMIN with MINERAL TABLET. PO SCH (20:08)
[2021-10-22] MEDS ORDERED: HEPARIN for IV BOLUS 10,000 UNIT/10 ML VIAL. IV PRN ×3 (20:15→21:00)
[2021-10-22] MEDS ORDERED: HEPARIN 25,000UTS/250ML PREMIX 250 ML IV PRN (21:00)
[2021-10-22] MEDS ORDERED: NON FORMULARY ITEM (Melatonin 10 MG) PO SCH (21:00)
[2021-10-22] MEDS ORDERED: SIMVASTATIN 40 MG TABLET. PO SCH (21:00)
[2021-10-23] VITALS (31 sets, daily range): BP systolic 91–137; BP diastolic 43–81
[2021-10-23 00:20] LABS: PROTHROMBIN TIME PATIENT 13.3 SEC (11.7-14.0)
[2021-10-23] MEDS: tiZANidine 4 MG TABLET. PO PRN ×2 (01:04→12:45)
[2021-10-23] MEDS: ACETAMINOPHEN 325 MG TABLET. PO PRN ×2 (01:05→12:45)
[2021-10-23 06:31] LABS: HEMATOCRIT 38.7 % (36.0-47.0); HEMOGLOBIN 12.6 g/dL (12.0-15.5); RED BLOOD COUNT 3.92 x10^6/uL (3.50-5.40); RED CELL DISTRIBUTION WIDTH 15.1 % (11.5-14.5); WHITE BLOOD COUNT 7.9 x10^3/uL (4.0-11.0)
[2021-10-23 06:51] LABS: PROTHROMBIN TIME PATIENT 13.3 SEC (11.7-14.0)
[2021-10-23] MEDS ORDERED: HEPARIN 25,000UTS/250ML PREMIX 250 ML IV PRN (08:15)
[2021-10-23] MEDS: ALPRAZolam 0.5 MG TABLET PO SCH ×2 (08:25→20:49)
[2021-10-23] MEDS: FAMOTIDINE 20 MG TABLET. PO SCH ×2 (08:26→20:49)
[2021-10-23] MEDS: SERTRALINE 50 MG TABLET. PO SCH (08:28)
--- NOTE | 2021-10-23 08:42 | PDOC ---
Provider Note Date of Service: DATE: 10/23/21 TIME: 08:41 Provider Note good L pedal pulses now due to alteplase lysis- now ? add NOAC as she failed asa/zontivity , but tobacco still an issue Justifications for Admission Other Justification BETHANIE MATHEW MD Oct 23, 2021 08:42
[2021-10-23] MEDS: VORAPAXAR SULFATE 2.08 MG PO SCH (09:00)
[2021-10-23] MEDS ORDERED: fentaNYL PF VIAL 100 MCG/2 ML VIAL ONE (11:31)
[2021-10-23] MEDS ORDERED: MIDAZOLAM HCL/PF 2 MG/2 ML VIAL. ONE (11:31)
[2021-10-23] MEDS ORDERED: ONDANSETRON PF 4 MG/2 ML VIAL. ONE (11:32)
[2021-10-23] MEDS ORDERED: IODIXANOL 320 MG/ML 100 ML VIAL. ONE (12:23)
[2021-10-23] MEDS ORDERED: LIDOCAINE WITH 8.4% SOD BICARB 3 ML DISP.SYRIN. ONE (12:23)
--- NOTE | 2021-10-23 13:12 | RAD ---
10/23/2021 1. Iliac angiography 2. Angioplasty left common iliac artery secondary to in-stent stenosis Discussion: Patient is status post 24 hour TPA thrombolysis of the previously occluded left common il iac artery stent. She presents for repeat angiogram and further intervention. Consent: The procedure was explained in its entirety to the patient or the patients designated repres entative by a member of the treatment team, including a discussion of the risks, benefits and commonl y accepted alternatives to the procedure, as well as the expected consequences of no therapy whatsoev er. Discussion of the risks included, but was not limited to, those that are most frequent and thos e that are rare but possibly severe or life-threatening, as well as the possibility of unforeseen com plications. The left groin was prepped and draped using maximum sterile technique, including the use of: Current guideline approved cutaneous antisepsis, a large sterile sheet to establish a sterile field. Addition ally the continuous process machine operator wore a hat, mask, sterile gloves, a sterile gown during the procedure as well as pr acticed acceptable hand hygiene prior to the procedure. Angiograms were performed through the pre-existing sheath and catheter demonstrating resolution of th e previously seen left common iliac thrombus. Mild narrowing at the ostium of the left common iliac a rtery stent was noted and treated with balloon angioplasty to 7 mm with improvement in flow. Sheath w as then removed. Manual pressure was held. Sterile dressings were applied. Total fluoroscopy time 1.2 minutes Dose area product 14 Roberto centimeter squared Sedation: The procedure was performed under conscious sedation including continuous cardiopulmonary m onitoring via a dedicated sedation nurse. [id number] sedation time: 30 minutes Impression: Resolution of thrombus status post TPA thrombolysis. Narrowing at the ostium the left com mon iliac artery stent treated with balloon angioplasty to 7 mm. No immediate complications. Electronically signed by: Sergio Hazel MD (10/23/2021 1:10 PM) [id number]
[2021-10-23] MEDS ORDERED: IODIXANOL 320 MG/ML 100 ML VIAL. IART ONE (13:30)
[2021-10-23] MEDS ORDERED: MIDAZOLAM HCL/PF 2 MG/2 ML VIAL. IV ONE (13:30)
[2021-10-23] MEDS ORDERED: fentaNYL PF VIAL 100 MCG/2 ML VIAL IV ONE (13:30)
[2021-10-23] MEDS ORDERED: ONDANSETRON PF 4 MG/2 ML VIAL. IVP ONE (13:30)
[2021-10-23] MEDS ORDERED: LIDOCAINE WITH 8.4% SOD BICARB 3 ML DISP.SYRIN. IJ ONE (13:30)
[2021-10-23] MEDS ORDERED: CONTRAST GIVEN. MC PRN (13:45)
--- NOTE | 2021-10-23 15:05 | PDOC ---
Provider Note Date of Service: DATE: 10/23/21 TIME: 15:00 Provider Note Awake and alert Abdomen soft, nondistended and nontender Left groin access site is clear with no hematoma and a dry dressing Bilateral lower extremities are warm with palpable dorsalis pedis and posterior tibial pulses, her toes are pink and warm with good capillary refill, intact motor and sensory function A/P 65-year-old female with peripheral arterial disease developed thrombosis of her left iliac artery stent. She has undergone an angiogram and arterial thrombolysis of the left iliac artery with good success. Following lysis and angioplasty of the left iliac artery stent it is now widely patent. She completed her angiogram this morning. She has strong palpable pulses in her feet. -Recommend daily aspirin 81 mg and full anticoagulation likely with Eliquis or Xarelto, we will defer to her medical physician -From a vascular standpoint she can discharge home tomorrow and follow-up will be arranged in our office 4 to 6 weeks Justifications for Admission Other Justification VICKIE LUCIO MD Oct 23, 2021 15:05
[2021-10-23] MEDS: ATORVASTATIN CALCIUM 40 MG TABLET. PO SCH (20:48)
[2021-10-23] MEDS: MULTIVITAMIN with MINERAL TABLET. PO SCH (20:49)
[2021-10-23] MEDS: MIRTAZAPINE 15 MG TABLET PO SCH (20:49)
[2021-10-23] MEDS: ASPIRIN ENTERIC COATED 81 MG TABLET.DR. PO SCH (20:50)
[2021-10-23] MEDS ORDERED: RIVAROXABAN 10 MG TABLET. PO SCH (21:00)
[2021-10-24] VITALS (11 sets, daily range): BP systolic 98–117; BP diastolic 48–69
[2021-10-24] MEDS: ASPIRIN ENTERIC COATED 81 MG TABLET.DR. PO SCH (08:26)
[2021-10-24] MEDS: ALPRAZolam 0.5 MG TABLET PO SCH (08:26)
[2021-10-24] MEDS: FAMOTIDINE 20 MG TABLET. PO SCH (08:26)
[2021-10-24] MEDS: SERTRALINE 50 MG TABLET. PO SCH (08:27)
[2021-10-24] MEDS: VORAPAXAR SULFATE 2.08 MG PO SCH (09:00)
--- NOTE | 2021-10-24 09:59 | PDOC ---
Provider Note Date of Service: DATE: 10/24/21 TIME: 09:58 Provider Note Awake and alert VSS Abdomen soft, nondistended and nontender Left groin access site is clear with no hematoma and a dry dressing Bilateral lower extremities are warm with palpable dorsalis pedis and posterior tibial pulses, her toes are pink and warm with good capillary refill, intact motor and sensory function A/P 65-year-old female with peripheral arterial disease developed thrombosis of her left iliac artery stent. She has undergone an angiogram and arterial thrombolysis of the left iliac artery with good success. Following lysis and angioplasty of the left iliac artery stent it is now widely patent. She completed her angiogram this morning. She has strong palpable pulses in her feet. -She is on aspirin 81 mg and Xarelto. We will continue the Xarelto for approximately 3 months. - She will see us in the office in 4 to 6 weeks with arterial testing and an office visit. -Okay to discharge home from a vascular standpoint Justifications for Admission Other Justification VICKIE LUCIO MD Oct 24, 2021 09:59
--- NOTE | 2021-10-24 11:00 | PDOC ---
Provider Note Date of Service: DATE: 10/24/21 TIME: 10:59 Provider Note dictated Justifications for Admission Other Justification BETHANIE MATHEW MD Oct 24, 2021 11:00
--- NOTE | 2021-10-24 11:45 | NUR ---
Seen by Dr. Weir, ok for discharge. Seen and examined by Dr. Gomez, patient may go home. Both of the [id number] mentioned continuing Xarelto at home. Noted also in Dr. Weir's notes for 3 months. Handwritten prescription for Xarelto 20mg tab PO, daily #90 given to patient. Called in to [facility] pharmacy, noted in patient's phone mercedes that medication was approved by insurance. [id number]-Discharge instructions instructed to patient which she understood, and signed pertinent documents, refused wheelchair going out. Discharged to home ambulatory, stable, without complaints accompanied by out of unit by 1150h.
--- NOTE | 2021-10-26 09:33 | HP ---
DATE OF SERVICE: 10/22/2021 ADMIT DATE: 10/21/2021 CHIEF COMPLAINT: . HISTORY OF PRESENT ILLNESS: This is a 65-year-old female Dr. Loja stents. In the last 1-2 weeks, she has had increasing pain in the left leg, some at rest, some when walking . The pain became intractable and she came to the ER. She was placed over a period of several hours for leg pain. She is able to walk to the bathroom without pain. She has had no other vascular symptoms. PAST MEDICAL HISTORY: MEDICATIONS: Include aspirin, soctivity and atorvastatin. She has had no other significant medical problems. SOCIAL HISTORY: Still light smoker for 15 years. , not employed to my knowledge. REVIEW OF SYSTEMS: No other complaints. PHYSICAL EXAMINATION: ENT: All within normal limits. NECK: No masses, nodes or bruits. LUNGS: Clear. CARDIOVASCULAR: Regular rate. No irregular beat or murmur. ABDOMEN: Benign. Pulses not palpable in the left groin. EXTREMITIES: Left leg is warm. I do not really palpate distal pedal pulses in the left foot. The right foot has good pulses. Toes do not appear to be dusky. NEUROLOGIC: Physiologic. ASSESSMENT: Coronary artery disease with progressive ischemic symptoms of the left leg. Aortogram showed complete occlusion of the proximal common iliac stent. PLAN: Vascular consult pending. Continue heparin for now. ENZO/GURVINDER/RENATA DR: Santiago TID: [id number]
--- NOTE | 2021-10-26 09:50 | DS ---
DATE OF DISCHARGE: 10/24/2021 HOSPITAL SUMMARY: The patient has a history of peripheral arterial disease and came in with increasing ischemic left leg pain. She had decreased pedal pulses and a cool foot on the left side and was given IV heparin and overnight there was notable symptomatic improvement. The possibility of soft clot in the proximal iliac artery stent, which showed stenosis on sonogram, was considered that she has about 12 hours of IV ultimately and had further symptomatic improvement and good mu-ism of pedal pulses on the left foot. Xarelto was added for discharge as the aspirin she has been taking clearly was inadequate to prevent thrombosis. She is better and comfortable followed as an outpatient at this point. FINAL DIAGNOSIS: Acute arterial occlusion of the left common iliac artery stent secondary to a blood clot. OPERATIONS, PROCEDURES, AND COMPLICATIONS: None. CONSULTATION: Dr. Weir, Vascular surgery. DISPOSITION: She will continue aspirin and soctivity and we will add treatment of Xarelto 20 mg daily medicine. Complete tobacco to avoid to her best effort. Office followup with Dr. Farris in one week and vascular . She is already on a statin. Prognosis dependent on her discontinued use of tobacco. [facility] [place] DR: ENZO/bong TID: [id number]
== END 2021-10-24 11:50 | disposition home or self-care (01) | DRG 253 ==
LOC: ER 13:06 → 2 NORTH 20:15 → 1 WEST ICU 10-22 12:22
PROVIDERS: ADMIT Family Medicine; ATTEND Family Medicine
PROC: B41G1ZZ Fluoroscopy of Left Lower Extremity Arteries using Low Osmolar Contrast (ICD-10-PCS; 2021-10-22)
PROC: 3E03317 Introduction of Other Thrombolytic into Peripheral Vein, Percutaneous Approach (ICD-10-PCS; 2021-10-22)
PROC: 047D3ZZ Dilation of Left Common Iliac Artery, Percutaneous Approach (ICD-10-PCS; principal; 2021-10-23)
PROC: B41G1ZZ Fluoroscopy of Left Lower Extremity Arteries using Low Osmolar Contrast (ICD-10-PCS; 2021-10-23)
DX: T82.856A Stenosis of peripheral vascular stent, initial encounter (principal); I74.5 Embolism and thrombosis of iliac artery; E78.5 Hyperlipidemia, unspecified; F17.200 Nicotine dependence, unspecified, uncomplicated; I25.10 Atherosclerotic heart disease of native coronary artery without angina pectoris; I73.9 Peripheral vascular disease, unspecified; J06.9 Acute upper respiratory infection, unspecified; J44.9 Chronic obstructive pulmonary disease, unspecified; Z79.82 Long term (current) use of aspirin; Z90.49 Acquired absence of other specified parts of digestive tract; F32.A Depression, unspecified; F41.9 Anxiety disorder, unspecified; Z88.8 Allergy status to other drugs, medicaments and biological substances
CPT/HCPCS: 36415; 37214; 37220; 64493; 71275; 75635; 75710; 76937; 80048; 80053; 84484; 85025; 85027; 85384; 85520; 85610; 85730; 86850; 86900; 86901; 93005; 93923; 99152; 99153; C1725; C1757; C1769; C1892; C1894; J1644; J2250; J2405; J2997; J3010; J3490; J7050; Q9967; 99285-25; G0378; J7030